=== PATIENT | male | born 1955 | race African-American/Black ===

== ENCOUNTER 2017-04-19 19:16 | Emergency (ER) | payer OTHER ==
[2017-04-19 19:25] VITALS: BP 142/78
[2017-04-19] MEDS ORDERED: DECADRON INJ IM ONE (20:08)
--- NOTE | 2017-04-19 20:09 | DR.GENAD ---
HPI - PCP Primary Care Physician: NFD - Complaint/Symptoms Chief Complaint:: LEFT FOOT PAIN FROM GOUT THAT STARTED ON TUESDAY. Self Treatment fo Chief Complaint: NONE - Source History Provided: Patient - Mode of Arrival Mode of Arrival: Ambulatory - Timing Onset of Chief Complaint: 04/17/17 PMH - PMH Past Medical History: Yes Past Medical History: Arthritis, COPD, CVA, Gout, Hypertension Past Surgical History: Yes Surgical History: Other Past Surgical History Comment: CIRCUMCISION - Family History History of Family Medical Conditions: Yes Family Medical History: Diabetes Mellitus, Cancer, [place], Coronary Artery Disease, Heart Failure, Sudden Cardiac , Hypertension - Social History Type of Tobacco Use: Cigarettes Alcohol Use: Occasionally Do you use any recreational Drugs:: No Lives With: Spouse Lives Where: Home - infectious screening Have you traveled outside the country in the last 6 months?: No Isolation: Standard ROS - Review of Systems Constitutional: No Symptoms Reported Eyes: No Symptoms Reported ENTM: No Symptoms Reported Respiratoy: No Symptoms Reported Cardiovascular: No Symptoms Reported Gastrointestinal/Abdominal: No Symptoms Reported Genitourinary: No Symptoms Reported Neurological: No Symptoms Reported Musculoskeletal: No Symptoms Reported Integumentary: No Symptoms Reported Hematologic/Lymphatic: No Symptoms Reported Endocrine: No Symptoms Reported Psychiatric: No Symptoms Reported All Other Systems: Reviewed and Negative PE - Vital Signs Vitals: Temperature 98.8 F Pulse Rate 88 Respiratory Rate 18 Blood Pressure [Left Arm] 153/76 Blood Pressure 142/78 O2 Sat by Pulse Oximetry 97 - General Limitations: No Limitations General Appearance: Alert, In No Apparent Distress - Head Head Exam: Normal Inspection, Atraumatic - Eyes Eye exam: Normal Appearance, Scleral Icterus - ENT ENT Exam: Normal Exam External Ear Exam: Normal External Inspection TM/Canal Exam: Bilateral Normal Nose Exam: Normal Nose Exam Mouth Exam: Normal Inspection Throat Exam: Normal Inspection - Neck Neck Exam: Normal Inspection - Chest Chest Inspection: Normal Inspection - Respiratory Respiratory Exam: Normal Lung Sounds Bilat Respiratory Exam: Bilateral Clear to Auscultation - Cardiovascular Cardiovascular Exam: Regular Rate - Abdominal Exam Abdominal Exam: Normal Inspection Abdominal Tenderness: negative: RUQ, RLQ, LUQ, LLQ, Epigastrium, Suprapubic, Diffuse, Mild, Moderate, Severe, Other - Extremities Extremities Exam: Joint Swelling (jonint swelling) - Back Back Exam: Normal Inspection, Full ROM - Neurologic Neurological Exam: Alert, Oriented X3, CN II-XII Intact - Psychiatric Psychiatric Exam: Normal Affect - Skin Skin Exam: Warm, Dry, Intact - Diagnosis Discharge Problem: Gout - Discharge Plan Condition: Stable - Follow ups/Referrals Follow ups/Referrals: NFD,None [Primary Care Provider] - 3 days - Instructions
[2017-04-19] MEDS ORDERED: DECADRON INJ ONE (20:17)
== END 2017-04-19 20:35 | disposition home or self-care (01) ==
LOC: ER 19:31
DX: M10.9 Gout, unspecified (principal)
CPT/HCPCS: 96372; 99282; J1100

== ENCOUNTER 2017-06-21 14:05 | Emergency (ER) | payer OTHER ==
[2017-06-21 14:24] VITALS: BMI 40.1
[2017-06-21 14:25] VITALS: BP 155/90
--- NOTE | 2017-06-21 15:13 | DR.EXTPAIN ---
HPI - Time seen Time seen: 14:35 - PCP Primary Care Physician: HUAN - HPI Comment HPI Comment: STARTED 9DAYS AGO. WORSE TODAY. NO DRAINAGE. - Complaint/Symptoms Chief Complaint Doctor Comments: ABSCESS ABD REDNESS RIGHT NECK. Chief Complaint:: PT HAS AN ABCESS TO THE RIGHT SIDE OF HIS NECK THAT STARTED A FEW DAYS AGO.. - Nurses notes reviewed Nurses Notes Review: Yes - Source History Provided: Patient - Mode of arrival Mode of Arrival: Ambulatory - Timing Onset of Chief Complaint: 06/12/17 - Context History of: None - Associated signs and symptoms Associated Signs and Symptoms: Pain, Swelling (REDNESS) PMH - PMH Past Medical History: Yes Past Medical History: Arthritis, COPD, CVA, Gout, Hypertension Past Surgical History: No Surgical History: Other - Family History History of Family Medical Conditions: Yes Family Medical History: Diabetes Mellitus, Cancer, [place], Coronary Artery Disease, Heart Failure, Sudden Cardiac , Hypertension - Social History Does patient currently use any type of tobacco product: Yes Have you used tobacco products in the last 12 months: Yes Type of Tobacco Use: Cigarettes How many years tobacco product used: 30 Does any household member use tobacco: No Alcohol Use: None Do you use any recreational Drugs:: No Lives With: Family Lives Where: Home - infectious screening In the last 2 months have you had wt loss of >10#?: NO Have you had fever, night sweats or hemotysis?: No Have you traveled outside the country in the last 6 months?: No Isolation: Standard ROS - Review of Systems Constitutional: No Symptoms Reported Eyes: No Symptoms Reported ENTM: No Symptoms Reported Respiratoy: No Symptoms Reported Cardiovascular: No Symptoms Reported Gastrointestinal/Abdominal: No Symptoms Reported Genitourinary: No Symptoms Reported Neurological: No Symptoms Reported Musculoskeletal: Neck Pain, Right Integumentary: Other (ABSCESS AND CELLULITIS RIGHT NECK.) Hematologic/Lymphatic: No Symptoms Reported Endocrine: No Symptoms Reported All Other Systems: Reviewed and Negative PE - Vital Signs Vitals: Temperature 98 F Pulse Rate 62 Respiratory Rate 18 Blood Pressure [Left Arm] 153/76 Blood Pressure 155/90 O2 Sat by Pulse Oximetry 99 - General Limitations: No Limitations General Appearance: Alert - Head Head Exam: Normal Inspection - Eyes Eye exam: Normal Appearance - ENT ENT Exam: Normal External Ear Exam - Neck Neck Exam: Trachea Midline, Tenderness (RT LATERAL NECK WITH ABSCESS AND REDNESS.) - Chest Chest Inspection: Symmetric Chest Wall Rise - Respiratory Respiratory Exam: Normal Lung Sounds Bilat Respiratory Exam: Bilateral Clear to Auscultation - Cardiovascular Cardiovascular Exam: Regular Rate, Normal Rhythm, Normal Heart Sounds - Abdominal Exam Abdominal Exam: Normal Bowel Sounds, Soft. negative: Tenderness - Extremities Extremities Exam: Normal Inspection - Skin Type of Lesion: Abscess Distribution: Neck Description: Erythematous, Swelling, Other (ABSCESS SIZE GOLF BALL LATERAL RIGHT NECK AT THE BASE. IT IS TENDER AND) MDM - Differential Diagnosis Differential Diagnosis: Other (ABSCESS RIGHT NECK, CELLULITIS RT NECK.) Course - Treatment Treatment: SEE ORDERS - Education/Counseling Education/Counseling: Patient, Education Educated On: Diagnosis, Needs for Follow Up ROR - Labs Reviewed Laboratory: 06/21/17 14:58 Neck Gram Stain - Final Procedures - Incision and Drainage Blade Size: 11 I & D Procedure: betadine prep, sterile dressing applied, gauze wick placed Progress: I&D DONE. 3CC PUS DRAIN FROM ABSCESS ON RIGHT LATERAL NECK. - Diagnosis Discharge Problem: Abscess Cellulitis Qualifiers: Site of cellulitis: neck Qualified Code(s): L03.221 - Cellulitis of neck - Discharge Plan Disposition: HOME, SELF-CARE Condition: Stable Prescriptions: Ibuprofen [MOTRIN TAB 800 MG *] 800 mg PO Q8H PRN #20 tab PRN Reason: Pain/Inflammation Sulfamethoxazole-Trimethoprim [BACTRIM DS TAB 800/160 MG *] 1 tab PO Q8H #20 tab Tramadol HCl 50 mg PO Q8H #15 tablet - Follow ups/Referrals Follow ups/Referrals: NFD,None [Primary Care Provider] - 3 days Max Chaves [STAFF PHYSICIAN] - 2 days - Instructions Instructions: Abscess, [id number], Cellulitis, Adult, [id number] Additional Instructions: RETURN TO ED IF WORSE.
== END 2017-06-21 15:25 | disposition home or self-care (01) ==
LOC: ER 14:26
PROC: 0W963ZZ Drainage of Neck, Percutaneous Approach (ICD-10-PCS; principal; 2017-06-21)
DX: L02.11 Cutaneous abscess of neck (principal); L03.221 Cellulitis of neck
CPT/HCPCS: 10060; 87070; 87075; 87205; 99282

== ENCOUNTER 2017-09-25 18:09 | Emergency (ER) | payer OTHER ==
[2017-09-25 18:28] VITALS: BP 188/91; BMI 48.8
--- NOTE | 2017-09-25 20:24 | DR.GENAD ---
HPI - PCP Primary Care Physician: NFD - Complaint/Symptoms Chief Complaint Doctors Comments: Patient presents with complaint of hematuria this AM and at noon today. He denies urinary frequency fever or traume. Admits to colonoscopy this year. Chief Complaint:: BLOOD IN URINE. PT STATES HE NOTICED IT FIRST THING THIS MORNING AND THEN AT LUNCH TIME TODAY. - Source History Provided: Patient - Mode of Arrival Mode of Arrival: Ambulatory - Timing Onset of Chief Complaint: 09/25/17 PMH - PMH Past Medical History: Yes Past Medical History: Arthritis, COPD, CVA, Gout, Hypertension Past Surgical History: No Surgical History: Other - Family History History of Family Medical Conditions: Yes Family Medical History: Diabetes Mellitus, Cancer, [place], Coronary Artery Disease, Heart Failure, Sudden Cardiac , Hypertension - Social History Does patient currently use any type of tobacco product: Yes Have you used tobacco products in the last 12 months: Yes Type of Tobacco Use: Cigarettes Does any household member use tobacco: No Alcohol Use: None Do you use any recreational Drugs:: No Lives With: Spouse Lives Where: Home - infectious screening In the last 2 months have you had wt loss of >10#?: NO Have you had fever, night sweats or hemotysis?: No Have you traveled outside the country in the last 6 months?: No Isolation: Standard ROS - Review of Systems Eyes: No Symptoms Reported ENTM: No Symptoms Reported Respiratoy: No Symptoms Reported Cardiovascular: No Symptoms Reported Gastrointestinal/Abdominal: No Symptoms Reported Genitourinary: No Symptoms Reported Neurological: No Symptoms Reported Musculoskeletal: No Symptoms Reported Integumentary: No Symptoms Reported Hematologic/Lymphatic: No Symptoms Reported Endocrine: No Symptoms Reported Psychiatric: No Symptoms Reported All Other Systems: Reviewed and Negative PE - Vital Signs Vitals: Temperature 97.7 F Pulse Rate 63 Respiratory Rate 20 Blood Pressure [Left Arm] 153/76 Blood Pressure 188/91 O2 Sat by Pulse Oximetry 98 - General Limitations: No Limitations General Appearance: Alert, In No Apparent Distress - Head Head Exam: Normal Inspection, Atraumatic - Eyes Eye exam: Normal Appearance, PERRL, EOMI - ENT ENT Exam: Normal Exam External Ear Exam: Normal External Inspection TM/Canal Exam: Bilateral Normal Nose Exam: Normal Nose Exam Mouth Exam: Normal Inspection Throat Exam: Normal Inspection - Neck Neck Exam: Normal Inspection - Chest Chest Inspection: Normal Inspection - Respiratory Respiratory Exam: Normal Lung Sounds Bilat Respiratory Exam: Bilateral Clear to Auscultation - Cardiovascular Cardiovascular Exam: Regular Rate, Normal Rhythm - Abdominal Exam Abdominal Exam: Normal Inspection Abdominal Tenderness: negative: RUQ, RLQ, LUQ, LLQ, Epigastrium, Suprapubic, Diffuse, Mild, Moderate, Severe, Other - Extremities Extremities Exam: Normal Inspection - Back Back Exam: Normal Inspection - Neurologic Neurological Exam: Alert, Oriented X3, CN II-XII Intact - Psychiatric Psychiatric Exam: Normal Affect - Skin Skin Exam: Warm, Dry, Intact Course - Reevaluation 1st: Unchanged ROR - Labs Reviewed Laboratory: Specimen Type Clean catch urine 09/25/17 20:30 Urine Color Yellow (YELLOW) 09/25/17 20:30 Urine Appearance Clear (CLEAR) 09/25/17 20:30 Urine pH 5.0 (5.0 - 8.0) 09/25/17 20:30 Ur Specific [place] 1.015 (1.000-1.030) 09/25/17 20:30 Urine Protein 1+ (NEGATIVE) 09/25/17 20:30 Urine Glucose (UA) Negative (NEGATIVE) 09/25/17 20:30 Urine Ketones Negative (NEGATIVE) 09/25/17 20:30 Urine Occult Blood Negative (NEGATIVE) 09/25/17 20:30 Urine Nitrite Negative (NEGATIVE) 09/25/17 20:30 Urine Bilirubin Negative (NEGATIVE) 09/25/17 20:30 Urine Urobilinogen Normal (NORMAL) 09/25/17 20:30 Ur Leukocyte Esterase Negative (NEGATIVE) 09/25/17 20:30 Urine RBC None seen /HPF (NEGATIVE) 09/25/17 20:30 Urine WBC None seen /HPF (NEGATIVE) 09/25/17 20:30 Ur Squamous Epith Cells Negative /HPF (NEGATIVE) 09/25/17 20:30 Amorphous Sediment Trace /HPF (NEGATIVE) 09/25/17 20:30 Urine Bacteria Negative /HPF (NEGATIVE) 09/25/17 20:30 Ur Culture Indicated? No/not indicated 09/25/17 20:30 - XRAY XRAY Interpreted by: Radiologist (KUB: Evaluation of the abdomen demonstrates a normal bowel gas pattern. No free air. Probable small bilateral renal stones. The bony structures are grossly intact. Impression: Probable small bialteral renal stones. ) - Diagnosis Discharge Problem: Small kidney, bilateral - Discharge Plan Condition: Stable - Follow ups/Referrals Follow ups/Referrals: NFD,None [Primary Care Provider] - 3 days - Instructions
[2017-09-25 20:38] LABS: BILIRUBIN,URINE NEGATIVE (NEGATIVE); BLOOD/HEMOGLOBIN,URINE NEGATIVE (NEGATIVE); GLUCOSE, URINE NEGATIVE (NEGATIVE); KETONES,URINE NEGATIVE (NEGATIVE); LEUKOCYTE ESTERASE ,URINE NEGATIVE (NEGATIVE); NITRITES,URINE NEGATIVE (NEGATIVE); PROTEIN,URINE 1+ (NEGATIVE); UROBILINOGEN,URINE NORMAL (NORMAL)
[2017-09-25 20:49] LABS: AMORPHOUS SEDIMENT,UR TRACE /HPF (NEGATIVE); APPEARANCE,URINE CLEAR (CLEAR); BACTERIA,URINE NEGATIVE /HPF (NEGATIVE); COLOR,URINE YELLOW (YELLOW); RBC,URINE NONE SEEN /HPF (NEGATIVE); SQUAMOUS EPITHELIAL CELL,UR NEGATIVE /HPF (NEGATIVE)
--- NOTE | 2017-09-25 21:51 | RAD ---
HISTORY: Blood in urine Study: Flat and upright views of the abdomen. Comparison: None Findings: Evaluation of the abdomen demonstrates a normal bowel gas pattern. No free air. Probable small bilat eral renal stones. The bony structures are grossly intact. IMPRESSION: 1. Probable small bilateral renal stones. Reported By:
[2017-09-29 11:34] LABS: HCV VIRAL LOG <1.2 log IU
== END 2017-09-25 22:02 | disposition home or self-care (01) ==
LOC: ER 18:25
DX: R31.9 Hematuria, unspecified (principal)
CPT/HCPCS: 36415; 74000; 81001; 87522; 99282; 99283

== ENCOUNTER 2017-09-28 13:15 | Emergency (ER) | payer SELFPAY ==
--- NOTE | 2017-09-28 13:26 | DR.EXTPAIN ---
HPI - Time seen Time seen: 13:30 - PCP Primary Care Physician: HUAN - HPI Comment HPI Comment: GETTING WORSE. HOME MED DID NOT HELP. - Complaint/Symptoms Chief Complaint Doctor Comments: GOUT ATTACK RIGHT KNEE. Chief Complaint:: PT. C/O RIGHT KNEE PAIN. PT. STATES HE HAS GOUT. PT. AMBULATORY WITH CANE. - Nurses notes reviewed Nurses Notes Review: Yes - Source History Provided: Patient - Mode of arrival Mode of Arrival: Ambulatory - Timing Onset of Chief Complaint: 09/28/17 - Context History of: Gout, Arthritis - Associated signs and symptoms Associated Signs and Symptoms: Pain, Swelling PMH - PMH Past Medical History: Yes Past Medical History: Arthritis, COPD, CVA, Gout, Hypertension Past Surgical History: Yes Surgical History: Other - Family History History of Family Medical Conditions: Yes Family Medical History: Diabetes Mellitus, Cancer, [place], Coronary Artery Disease, Heart Failure, Sudden Cardiac , Hypertension - Social History Does patient currently use any type of tobacco product: Yes Have you used tobacco products in the last 12 months: Yes Type of Tobacco Use: Cigarettes Does any household member use tobacco: No Alcohol Use: Occasionally Do you use any recreational Drugs:: No Lives With: Family Lives Where: Home - infectious screening In the last 2 months have you had wt loss of >10#?: NO Have you had fever, night sweats or hemotysis?: No Have you traveled outside the country in the last 6 months?: No Isolation: Standard ROS - Review of Systems Constitutional: Weakness, Fatigue. negative: Chills, Fever Eyes: negative: Eye Pain, Discharge ENTM: negative: Ear Pain, Nose Discharge, Nose Congestion, Throat Pain Respiratoy: Short of Breath, Wheezing. negative: Productive Cough, Non- Productive Cough, Hemoptysis Cardiovascular: Edema. negative: Chest Pain Gastrointestinal/Abdominal: negative: Abdominal Pain, Diarrhea, Nausea, Vomiting Genitourinary: negative: Hematuria Neurological: Weakness. negative: Headache, Dizziness Musculoskeletal: Right, Knee Integumentary: No Symptoms Reported Hematologic/Lymphatic: No Symptoms Reported Endocrine: No Symptoms Reported All Other Systems: Reviewed and Negative PE - Vital Signs Vitals: Temperature 98 F Pulse Rate 96 Respiratory Rate 17 Blood Pressure [Left Arm] 153/76 Blood Pressure 152/71 O2 Sat by Pulse Oximetry 97 - General Limitations: No Limitations General Appearance: Alert - Head Head Exam: Normal Inspection - Eyes Eye exam: Normal Appearance - ENT ENT Exam: Normal Exam - Neck Neck Exam: Trachea Midline - Chest Chest Inspection: Symmetric Chest Wall Rise - Respiratory Respiratory Exam: Normal Lung Sounds Bilat Respiratory Exam: Bilateral Wheezing, Bilateral Rhonchi, Lower Wheezing, Lower Rhonchi - Cardiovascular Cardiovascular Exam: Regular Rate, Normal Rhythm, Normal Heart Sounds - Abdominal Exam Abdominal Exam: Normal Bowel Sounds, Soft. negative: Tenderness - Extremities Extremities Exam: Tenderness (RT KNEE SWOLLEN AND TENDER.), Edema (BILATERAL LEG AND ANKLE EDEMA.) - Lower Extremities Neurovascular/Tendon Exam: Normal Capillary Refill Gait Exam: Observed & Limited by Pain - Back Back Exam: Paraspinal Tenderness - Neurological Neurological Exam: Alert, Oriented X3 - Psychiatric Psychiatric Exam: Normal Affect, Normal Mood - Skin Skin Exam: Normal Color MDM - Differential Diagnosis Differential Diagnosis: Other (GOUT ATTACK, ARTHRITIS) Course - Treatment Treatment: SEE ORDERS. IM TORADOL, PAIN SLIGHLY IMPROVED - Reevaluation 1st: Improved - Education/Counseling Education/Counseling: Patient, Family, Education Educated On: Diagnosis, Needs for Follow Up - Diagnosis Discharge Problem: Right knee pain Gout attack Qualifiers: Gout site: knee Gout etiology: unspecified cause Laterality: right Qualified Code(s): M10.9 - Gout, unspecified - Discharge Plan Disposition: 01 HOME, SELF-CARE Condition: Stable Prescriptions: Indomethacin [Indomethacin ER] 75 mg PO QAM #30 capsule.er Tramadol HCl 50 mg PO Q8H #20 tablet - Follow ups/Referrals Follow ups/Referrals: NFD,None [Primary Care Provider] - 3 days - Instructions Instructions: Gout, [id number] Additional Instructions: RETURN TO ED IF WORSE
[2017-09-28 13:28] VITALS: BP 152/71; BMI 48.8
[2017-09-28] MEDS ORDERED: TORADOL 60 MG VIAL IM ONE (13:30)
[2017-09-28] MEDS ORDERED: TORADOL 60 MG VIAL ONE (13:32)
== END 2017-09-28 14:45 | disposition home or self-care (01) ==
LOC: ER 13:28
DX: M10.9 Gout, unspecified (principal); M25.561 Pain in right knee
CPT/HCPCS: 96372; 99282; J1885

== ENCOUNTER 2024-08-16 16:15 | Inpatient (IN) ==
[2024-08-16 16:52] LABS: MEAN CORPUSCULAR VOLUME 90.2 fL (80.0-100.0); NEUTROPHILS # (AUTO) 3.4 x10^3/uL (2.2-4.8); RED CELL DISTRIBUTION WIDTH 15.3 % (11.6-16.5)
[2024-08-16] MEDS: LEVAQUIN PREMIX IV 750 MG 750 MG/150 ML BAG IV ONE (16:53)
[2024-08-16 16:55] LABS: BASOPHILS % (AUTO) 0.1 % (0.2-1.0); BLOOD UREA NITROGEN 70 mg/dL (7-18); CALCIUM 9.3 mg/dL (8.5-10.1); CHLORIDE 101 mmol/L (98-107); CREATININE 3.47 mg/dL (0.70-1.30); EOSINOPHILS % (AUTO) 0.1 % (0.9-2.9); GLUCOSE 108 mg/dL (65-99); HEMOGLOBIN 13.1 g/dL (13.5-18.0); LYMPHOCYTES # (AUTO) 0.4 X10^3/uL (1.3-2.9); LYMPHOCYTES % (AUTO) 9.6 % (21.0-51.0); MEAN CORPUSCULAR HEMOGLOBIN 30.3 pg (27.0-34.0); MEAN CORPUSCULAR HGB CONC 33.6 g/dL (33.0-35.0); MEAN PLATELET VOLUME 10.1 fL (7.4-11.0); MONOCYTES # (AUTO) 0.5 x10^3/uL (0.3-0.8); NEUTROPHILS % (AUTO) 78.2 % (42.0-75.0); PLATELET COUNT 206 X10^3/uL (150.0-450.0); POTASSIUM 3.7 mmol/L (3.5-5.1); RED BLOOD COUNT 4.33 X10^6/uL (4.7-6.0); SODIUM 141 mmol/L (136-145); WHITE BLOOD COUNT 4.4 X10^3/uL (3.6-10.0); eGFR NON BLACK RACES 19 (>60)
[2024-08-16] MEDS: DUONEB 0.5 MG/3 MG (3 mL) NEB ONE (16:56)
[2024-08-16 17:09] LABS: ABG ALLEN TEST POS; ABG BASE EXCESS 2.1 mmol/L (-2.0-2.0); ABG HCO3 25.3 mmol/L (22-26)
[2024-08-16] MEDS: ROCEPHIN VIAL 1 GRAM 1 G in NS 100 ML IV 100 ML IV ONE (17:16)
[2024-08-16 17:18] LABS: ALANINE AMINOTRANSFERASE 8 Units/L (12-78); ALBUMIN 2.5 g/dL (3.4-5.0); ALKALINE PHOSPHATASE 66 Units/L (46-116); ASPARTATE AMINO TRANSFERASE 24 Units/L (15-37); COR CA(FOR HYPOALB) 10.5 mg/dL (8.5-10.1); TOTAL PROTEIN 7.2 g/dL (6.4-8.2)
[2024-08-16] MEDS: NS 1,000 ML IV 1,000 ML IV ONE ×2 (17:21→18:26)
[2024-08-16 17:22] LABS: PLATELET MORPHOLOGY COMMENT NORMAL (NORMAL)
--- NOTE | 2024-08-16 17:49 | DR.SOBA ---
HPI Time Seen Time Seen by Provider: 08/16/24 17:48 Primary Care Physician Primary Care Physician: jenny HPI Comment HPI Comment: Patient was diagnosed on 1118 with RSV. Patient has had increased shortness of breath and cough since then. Denies fever at this time Complaints Chief Complaint:: Patient was diagnosed with RSV on 08/14 states he has had increase sob and cough. COVID-19 Coronavirus risk:travel/contact w/high risk person: No Has patient experienced Coronavirus symptoms: Yes Coronavirus symptoms experienced: Coughing and Shortness of Breath Source History Provided: Patient Mode of Arrival Mode of Arrival: Wheelchair Timing Onset of Chief Complaint: 08/14/24 PMH PMH Past Medical History: Yes Past Medical History: Hypertension Past Surgical History: No Surgical History: No History Family History History of Family Medical Conditions: Yes Family Medical History: Hypertension Social History Does patient currently use any type of tobacco product: Yes Have you used tobacco products in the last 12 months: Yes Type of Tobacco Use: Cigarettes Does any household member use tobacco: Yes Alcohol Use: None Do you use any recreational Drugs:: No Lives With: Family Lives Where: Home Travel Risk Coronavirus risk:travel/contact w/high risk person: No Has patient experienced Coronavirus symptoms: Yes Coronavirus symptoms experienced: Coughing and Shortness of Breath Infectious screening In the last 2 months have you had wt loss of >10#?: NO Have you had fever, night sweats or hemotysis?: No Have you traveled outside the country in the last 6 months?: No Isolation: Droplet ROS Review of Systems Constitutional: No Symptoms Reported Eyes: No Symptoms Reported ENTM: No Symptoms Reported Respiratoy: See HPI, Non-Productive Cough and Short of Breath Cardiovascular: No Symptoms Reported Gastrointestinal/Abdominal: No Symptoms Reported Genitourinary: No Symptoms Reported Neurological: No Symptoms Reported Musculoskeletal: No Symptoms Reported Integumentary: No Symptoms Reported Hematologic/Lymphatic: No Symptoms Reported Endocrine: No Symptoms Reported Psychiatric: No Symptoms Reported All Other Systems: Reviewed and Negative PE Vital Signs Vitals: Vital Signs Temperature 98.6 F Pulse Rate 86 Pulse Rate 86 Pulse Rate 84 Pulse Rate 85 Pulse Rate 81 Pulse Rate 83 Pulse Rate 94 Pulse Rate 88 Pulse Rate 91 Respiratory Rate 30 Blood Pressure 139/63 Blood Pressure 120/61 Blood Pressure 125/63 Blood Pressure 134/74 Blood Pressure 94/56 O2 Sat by Pulse Oximetry 90 O2 Sat by Pulse Oximetry 92 O2 Sat by Pulse Oximetry 91 O2 Sat by Pulse Oximetry 91 O2 Sat by Pulse Oximetry 90 O2 Sat by Pulse Oximetry 94 O2 Sat by Pulse Oximetry 89 O2 Sat by Pulse Oximetry 89 O2 Sat by Pulse Oximetry 86 General Limitations: No Limitations General Appearance: Alert and In No Apparent Distress Head Head Exam: Normal Inspection Eyes Eye exam: Normal Appearance ENT ENT Exam: Normal Exam Neck Neck Exam: Normal Inspection Chest Chest Inspection: Normal Inspection Respiratory Respiratory Exam: Normal Lung Sounds Bilat Respiratory Exam: Bilateral: Wheezing and Bilateral: Decreased Breath Sounds (D ecreased on bilateral bases and coarse throughout.) Cardiovascular Cardiovascular Exam: Regular Rate and Normal Rhythm Abdominal Exam Abdominal Exam: Normal Inspection, Normal Bowel Sounds and Soft Extremities Extremities Exam: Normal Inspection Back Back Exam: Normal Inspection Neurologic Neurological Exam: Alert and Oriented X3 Psychiatric Psychiatric Exam: Normal Affect and Normal Mood Skin Skin Exam: Warm, Dry, Intact and Normal Color COURSE Treatment Treatment: Patient has had some improvement with current treatments. Reevaluation 1st: Improved Consultation Called: 18:37 Consultation Comments: Discussed case with Dr. Burgos and he is agreeable to adm ission. ROR Labs Reviewed 08/16/24 16:30 08/16/24 16:30 Laboratory: WBC 4.4 X10^3/uL (3.6-10.0) 08/16/24 16:30 RBC 4.33 X10^6/uL (4.7-6.0) L 08/16/24 16:30 Hgb 13.1 g/dL (13.5-18.0) L 08/16/24 16:30 Hct 39.0 % (42.0-54.0) L 08/16/24 16:30 MCV 90.2 fL (80.0-100.0) 08/16/24 16:30 MCH 30.3 pg (27.0-34.0) 08/16/24 16:30 MCHC 33.6 g/dL (33.0-35.0) 08/16/24 16:30 RDW 15.3 % (11.6-16.5) 08/16/24 16:30 Plt Count 206 X10^3/uL (150.0-450.0) 08/16/24 16:30 Plt Count Comment Adequate (ADEQUATE) 08/16/24 16:30 MPV 10.1 fL (7.4-11.0) 08/16/24 16:30 Neut % (Auto) 78.2 % (42.0-75.0) H 08/16/24 16:30 Lymph % (Auto) 9.6 % (21.0-51.0) L 08/16/24 16:30 [place] % (Auto) 12.0 % (0.0-13.0) 08/16/24 16:30 Eos % (Auto) 0.1 % (0.9-2.9) L 08/16/24 16:30 Baso % (Auto) 0.1 % (0.2-1.0) L 08/16/24 16:30 Neut # (Auto) 3.4 x10^3/uL (2.2-4.8) 08/16/24 16:30 Lymph # (Auto) 0.4 X10^3/uL (1.3-2.9) L 08/16/24 16:30 [place] # (Auto) 0.5 x10^3/uL (0.3-0.8) 08/16/24 16:30 Eos # (Auto) 0.0 x10^3/uL (0.0-0.2) 08/16/24 16:30 Baso # (Auto) 0.0 X10^3/uL (0.0-0.1) 08/16/24 16:30 Absolute Nucleated RBC 0.2 /100WBC 08/16/24 16:30 Total Counted 100 08/16/24 16:30 Neutrophils % (Manual) 79 % (39-76) H 08/16/24 16:30 Lymphocytes % (Manual) 10 % (13-43) L 08/16/24 16:30 Monocytes % (Manual) 11 % (4-9) H 08/16/24 16:30 Plt Morphology Comment Normal (NORMAL) 08/16/24 16:30 RBC Morphology Normal (NORMAL) 08/16/24 16:30 Sample Site Rrad 08/16/24 17:05 ABG pH 7.480 (7.35-7.45) H 08/16/24 17:05 ABG pCO2 34.0 mmHg (35.0-45.0) L 08/16/24 17:05 ABG pO2 46.0 mmHg (80.0-100.0) L* 08/16/24 17:05 ABG HCO3 25.3 mmol/L (22-26) 08/16/24 17:05 ABG O2 Saturation 85.0 % (90-100) L 08/16/24 17:05 ABG Base Excess 2.1 mmol/L (-2.0-2.0) H 08/16/24 17:05 Gunnar Test Pos 08/16/24 17:05 A-a Gradient 61.0 mmHg 08/16/24 17:05 FiO2 21.0 08/16/24 17:05 Blood Gas Comments Torsten well ms/cn 08/16/24 17:05 Sodium 141 mmol/L (136-145) 08/16/24 16:30 Corrected Sodium TNP 08/16/24 16:30 Potassium 3.7 mmol/L (3.5-5.1) 08/16/24 16:30 Chloride 101 mmol/L (98-107) 08/16/24 16:30 Carbon Dioxide 26.0 mmol/L (21-32) 08/16/24 16:30 BUN 70 mg/dL (7-18) H 08/16/24 16:30 Creatinine 3.47 mg/dL (0.70-1.30) H 08/16/24 16:30 Est GFR (MDRD) Af Amer 23 (>60) L 08/16/24 16:30 Est GFR (MDRD) Non-Af 19 (>60) L 08/16/24 16:30 Glucose 108 mg/dL (65-99) H 08/16/24 16:30 Lactic Acid 2.3 mmol/L (0.4-2.0) H 08/16/24 16:30 Calcium 9.3 mg/dL (8.5-10.1) 08/16/24 16:30 Corrected Calcium 10.5 mg/dL (8.5-10.1) H 08/16/24 16:30 Total Bilirubin 0.60 mg/dL (0.2-1.0) 08/16/24 16:30 AST 24 Units/L (15-37) 08/16/24 16:30 ALT 8 Units/L (12-78) L 08/16/24 16:30 Alkaline Phosphatase 66 Units/L (46-116) 08/16/24 16:30 Total Protein 7.2 g/dL (6.4-8.2) 08/16/24 16:30 Albumin 2.5 g/dL (3.4-5.0) L 08/16/24 16:30 Globulin 4.7 g/dL (2.5-4.5) H 08/16/24 16:30 Albumin/Globulin Ratio 0.5 Ratio (1.1-2.1) L 08/16/24 16:30 Opioid Opioid Risk Tool Age (Saad box if 16-45): No History of Preadolescent Sexual Abuse: No Total: 0 Total Score Risk Category: Low Risk Copyright: [facility] predicting aberrant behaviors Discharge Plan Diagnosis Discharge Problem: Pneumonia, Acute respiratory distress, Hypoxia Discharge Plan Patient Disposition: 09 ADMITTED INPATIENT Condition: Stable Prescriptions: No Action atorvastatin 20 mg tablet 20 mg PO QDAY 90 Days Qty: 90 1RF famotidine 20 mg tablet 20 mg PO BID 90 Days Qty: 180 1RF tadalafil [Cialis] 10 mg tablet 10 mg PO QDAY PRN (Reason: sexual activity) 30 Days Qty: 30 2RF Rx Instructions: administer approximately 30min before sexual activity; do not use more than 1 dose per 24hrs allopurinol 100 mg tablet 100 mg PO QDAY 90 Days Qty: 90 1RF clonidine HCl 0.3 mg tablet 0.3 mg PO TID 90 Days Qty: 270 1RF hydralazine 25 mg tablet 25 mg PO BID 90 Days Qty: 180 1RF lisinopril 40 mg tablet 40 mg PO QDAY 90 Days Qty: 90 1RF nifedipine 30 mg tablet extended release 24hr 30 mg PO QDAY 90 Days Qty: 90 1RF Health Concerns: Post Hospitalization: new medications and changes needed to prevent readmission or further decline. Pt educated and given instructions on all concerns. Plan of Treatment: Continue with present treatment and follow up plan. Pt is to keep follow up appointment as instructed and take medications as ordered. Orders to Discharge Patient Discharge Orders: Transfer (Routine); Ordered 08/16/24 Ordered By: Armando Villegas Follow ups/Referrals Follow ups/Referrals: Kirk Wilson MD [Primary Care Provider] - 3 days Instructions Stand Alone Forms: Post Hospital Follow Up Care
[2024-08-16] MEDS ORDERED: NS 1,000 ML IV 1,000 ML IV SCH (19:44)
[2024-08-16] MEDS ORDERED: PEPCID TAB 40 MG PO PRN (19:44)
[2024-08-16] MEDS ORDERED: PHARMACY CONSULT - LOVENOX XX SCH (19:44)
[2024-08-16] MEDS: NS 1,000 ML IV 1,000 ML IV SCH (20:38)
[2024-08-16] MEDS: SOLU-Medrol 125 MG VIAL IVP SCH (20:38)
[2024-08-16] MEDS: LOVENOX INJ 120 MG SYR SC ONE (20:39)
[2024-08-16] MEDS: PULMICORT NEB TX 0.5 MG NEB SCH (20:46)
[2024-08-16] MEDS: DUONEB 0.5 MG/3 MG (3 mL) NEB SCH (20:46)
[2024-08-16 21:47] VITALS: BMI 40.1
[2024-08-16] MEDS: APRESOLINE TAB 25 MG PO ONE (22:23)
[2024-08-16] MEDS ORDERED: HYDROCHLOROTHIAZIDE 25 MG TAB PO SCH (23:00)
[2024-08-17 05:13] LABS: HEMOGLOBIN 12.1 g/dL (13.5-18.0); LYMPHOCYTES # (AUTO) 0.5 X10^3/uL (1.3-2.9); MONOCYTES # (AUTO) 0.3 x10^3/uL (0.3-0.8); PLATELET COUNT 192 X10^3/uL (150.0-450.0)
[2024-08-17 05:21] LABS: BASOPHILS % (AUTO) 0.1 % (0.2-1.0); EOSINOPHILS % (AUTO) 0.1 % (0.9-2.9); HEMATOCRIT 36.3 % (42.0-54.0); MEAN CORPUSCULAR HEMOGLOBIN 29.9 pg (27.0-34.0); MEAN CORPUSCULAR HGB CONC 33.4 g/dL (33.0-35.0); MEAN CORPUSCULAR VOLUME 89.4 fL (80.0-100.0); MEAN PLATELET VOLUME 9.8 fL (7.4-11.0); MONOCYTES % (AUTO) 6.6 % (0.0-13.0); NEUTROPHILS # (AUTO) 3.3 x10^3/uL (2.2-4.8); NEUTROPHILS % (AUTO) 80.2 % (42.0-75.0); RED BLOOD COUNT 4.06 X10^6/uL (4.7-6.0); RED CELL DISTRIBUTION WIDTH 15.2 % (11.6-16.5); WHITE BLOOD COUNT 4.1 X10^3/uL (3.6-10.0)
[2024-08-17 05:29] LABS: ALBUMIN 2.1 g/dL (3.4-5.0); CALCIUM 9.2 mg/dL (8.5-10.1); CARBON DIOXIDE 24.7 mmol/L (21-32); COR CA(FOR HYPOALB) 10.7 mg/dL (8.5-10.1); CREATININE 2.71 mg/dL (0.70-1.30); POTASSIUM 3.8 mmol/L (3.5-5.1); TOTAL PROTEIN 6.8 g/dL (6.4-8.2)
--- NOTE | 2024-08-17 05:31 | RAD ---
EXAM:CHEST, PA/LAT ADULTHISTORY:sob;COMPARISON:August 14TECHNIQUE:Upright portable chestFINDINGS:Limited inspiration observed. Mild elevation of the right diaphragm. Multifocal bilateral pulmonary opacities with ground-glass attenuation and more dense consolidation in the left lung base are compatible with pneumonia. This is slightly worsened in the interim. The heart size remains stable. No pneumothorax is observed.IMPRESSION:Multi focal bilateral pulmonary opacities/infiltrates compatible with pneumonia.THIS IS AN ELECTRONICALLY VERIFIED FINAL [id number]/2024 5:28 AM - Electronically signed by Bunny Kelley MD
[2024-08-17 05:42] LABS: BAND NEUTROPHILS % 4 % (0-10); PLATELET MORPHOLOGY COMMENT NORMAL (NORMAL)
[2024-08-17] MEDS ORDERED: CONSULT PHARMACY - POTASSIUM & MAGNESIUM XX SCH (07:00)
[2024-08-17] MEDS: PULMICORT NEB TX 0.5 MG NEB ONE (07:14)
[2024-08-17] MEDS: NS 1,000 ML IV 1,000 ML ONE (07:14)
[2024-08-17] MEDS ORDERED: PEPCID TAB 20 MG PO PRN ×2 (07:29→11:11)
[2024-08-17] MEDS: PROTONIX INJ 40 MG VIAL IVP SCH (08:47)
[2024-08-17] MEDS: KLOR-CON 10 MEQ TAB PO SCH (08:49)
[2024-08-17] MEDS: ROCEPHIN VIAL 1 GRAM 1 G in NS 50 ML IV 50 ML IV SCH (08:49)
--- NOTE | 2024-08-17 10:24 | DR.H&P ---
H&P History & Physical for Day of: H&P Date: 08/17/24 Chief Complaint Chief Complaint: "I have breathing problems and feel tired all the time." History of Present Illness History of Present Illness: Pipo Salazar is a 68-year-old white male with a recent admission through the [facility] Emergency Department for RSV infection, COPD exacerbation, hypoxia, respiratory stress, and pneumonia. His symptoms began leading to his admission yesterday. He experienced shortness of breath, increased fatigue, and a sense of discomfort related to his breathing. Notably, he denies experiencing fever, chest pain, palpitations, or any sig nificant coughing prior to admission. Upon admission, he was assessed as dehydrated, with an estimated GFR of 23. Since then, his GFR has improved to 30, indicating better hydration status. He received IV hydration and treatment, including methylprednisolone, and his response has been positive with improved breathing noted this morning. Past Medical History Past Medical History: Dyslipidemia, GERD, Gout and Hypertension Additional Medical History: ED/The patient has a history of COPD and previously diagnosed respiratory conditions, including RSV. He also has a history of chronic hypoxia. His renal function tests indicated an improvement from a creatinine level of 3.47 upon admission to 2.71, confirming renal recovery. Other notable conditions include hypertension, for which he has been receiving medication management. Past Surgical History Surgical History: No History Family History Family Medical History: Diabetes Mellitus, Cancer, [place], Coronary Artery Disease and Hypertension Social History Does patient currently use any type of tobacco product: Yes Have you used tobacco products in the last 12 months: Yes Type of Tobacco Use: Cigarettes Does any household member use tobacco: Yes Alcohol Use: Occasionally Drug Use: None and Other (Social History Pipo lives independently and manages his daily activities without assistance. There are no indications of tobacco or illicit drug use, but his alcohol use status indicates he drinks occasional alcohol. His past occupation is also not documented.) Allergies Allergies Allergy/AdvReac Type Severity Reaction Status Date / Time No Known Drug Allergies Allergy Unknown Verified 08/14/24 17:04 Labs 08/17/24 04:38 08/17/24 04:38 Labs: Laboratory WBC 4.1 X10^3/uL (3.6-10.0) 08/17/24 04:38 RBC 4.06 X10^6/uL (4.7-6.0) L 08/17/24 04:38 Hgb 12.1 g/dL (13.5-18.0) L 08/17/24 04:38 Hct 36.3 % (42.0-54.0) L 08/17/24 04:38 MCV 89.4 fL (80.0-100.0) 08/17/24 04:38 MCH 29.9 pg (27.0-34.0) 08/17/24 04:38 MCHC 33.4 g/dL (33.0-35.0) 08/17/24 04:38 RDW 15.2 % (11.6-16.5) 08/17/24 04:38 Plt Count 192 X10^3/uL (150.0-450.0) 08/17/24 04:38 Plt Count Comment Adequate (ADEQUATE) 08/17/24 04:38 MPV 9.8 fL (7.4-11.0) 08/17/24 04:38 Neut % (Auto) 80.2 % (42.0-75.0) H 08/17/24 04:38 Lymph % (Auto) 13.0 % (21.0-51.0) L 08/17/24 04:38 [place] % (Auto) 6.6 % (0.0-13.0) 08/17/24 04:38 Eos % (Auto) 0.1 % (0.9-2.9) L 08/17/24 04:38 Baso % (Auto) 0.1 % (0.2-1.0) L 08/17/24 04:38 Neut # (Auto) 3.3 x10^3/uL (2.2-4.8) 08/17/24 04:38 Lymph # (Auto) 0.5 X10^3/uL (1.3-2.9) L 08/17/24 04:38 [place] # (Auto) 0.3 x10^3/uL (0.3-0.8) 08/17/24 04:38 Eos # (Auto) 0.0 x10^3/uL (0.0-0.2) 08/17/24 04:38 Baso # (Auto) 0.0 X10^3/uL (0.0-0.1) 08/17/24 04:38 Absolute Nucleated RBC 0.1 /100WBC 08/17/24 04:38 Total Counted 100 08/17/24 04:38 Neutrophils % (Manual) 73 % (39-76) 08/17/24 04:38 Band Neutrophils % 4 % (0-10) 08/17/24 04:38 Lymphocytes % (Manual) 18 % (13-43) 08/17/24 04:38 Monocytes % (Manual) 5 % (4-9) 08/17/24 04:38 Plt Morphology Comment Normal (NORMAL) 08/17/24 04:38 RBC Morphology Normal (NORMAL) 08/17/24 04:38 Sample Site Rrad 08/16/24 17:05 ABG pH 7.480 (7.35-7.45) H 08/16/24 17:05 ABG pCO2 34.0 mmHg (35.0-45.0) L 08/16/24 17:05 ABG pO2 46.0 mmHg (80.0-100.0) L* 08/16/24 17:05 ABG HCO3 25.3 mmol/L (22-26) 08/16/24 17:05 ABG O2 Saturation 85.0 % (90-100) L 08/16/24 17:05 ABG Base Excess 2.1 mmol/L (-2.0-2.0) H 08/16/24 17:05 Gunnar Test Pos 08/16/24 17:05 A-a Gradient 61.0 mmHg 08/16/24 17:05 FiO2 21.0 08/16/24 17:05 Blood Gas Comments Torsten well ms/cn 08/16/24 17:05 Sodium 141 mmol/L (136-145) 08/17/24 04:38 Corrected Sodium 142 mmol/L (136-145) 08/17/24 04:38 Potassium 3.8 mmol/L (3.5-5.1) 08/17/24 04:38 Chloride 105 mmol/L (98-107) 08/17/24 04:38 Carbon Dioxide 24.7 mmol/L (21-32) 08/17/24 04:38 BUN 56 mg/dL (7-18) H 08/17/24 04:38 Creatinine 2.71 mg/dL (0.70-1.30) H 08/17/24 04:38 Est GFR (MDRD) Af Amer 30 (>60) L 08/17/24 04:38 Est GFR (MDRD) Non-Af 25 (>60) L 08/17/24 04:38 Glucose 139 mg/dL (65-99) H 08/17/24 04:38 Lactic Acid 2.0 mmol/L (0.4-2.0) 08/16/24 18:50 Calcium 9.2 mg/dL (8.5-10.1) 08/17/24 04:38 Corrected Calcium 10.7 mg/dL (8.5-10.1) H 08/17/24 04:38 Magnesium 2.0 mg/dL (2.0-2.9) 08/17/24 04:38 Total Bilirubin 0.50 mg/dL (0.2-1.0) 08/17/24 04:38 AST 42 Units/L (15-37) H 08/17/24 04:38 ALT 19 Units/L (12-78) 08/17/24 04:38 Alkaline Phosphatase 63 Units/L (46-116) 08/17/24 04:38 Total Protein 6.8 g/dL (6.4-8.2) 08/17/24 04:38 Albumin 2.1 g/dL (3.4-5.0) L 08/17/24 04:38 Globulin 4.7 g/dL (2.5-4.5) H 08/17/24 04:38 Albumin/Globulin Ratio 0.4 Ratio (1.1-2.1) L 08/17/24 04:38 Diagnostic Tests White blood cell count at 4,100 this morning, down from 4,400 yesterday. Hemoglobin level is 12.1 today, decreased from 13.1. GFR improved from 23 to 30. Creatinine improved from 3.47 to 2.71, indicating renal recovery. Further lab tests planned for the next day. Review of Systems Constitutional: Other (Review of Systems (ROS) Respiratory - improved breathing noted, but still a little over 23 respirations. GI - positive bowel sounds noted, abdomen soft. No significant lower extremity edema. General - denies fever and chills, denies chest pain, and denies dizziness. Overall, he is feeling better fiorella) Eyes: No Symptoms Reported ENT: No Symptoms Reported Respiratory: Cough, Shortness of Breath, SOB with Excertion, Sputum and Wheezing; denies Hemoptysis Cardiovascular: No Symptoms Reported Gastrointestinal: No Symptoms Reported Genitourinary: No Symptoms Reported Musculoskeletal: No Symptoms Reported Skin: No Symptoms Reported Neurological: No Symptoms Reported Physical Exam Vital Signs: Vital Signs Temperature 97.7 F Temperature 97.8 F Pulse Rate [Left] 76 Pulse Rate [Left] 76 Respiratory Rate 21 Respiratory Rate 23 Blood Pressure [Left Arm] 171/80 Blood Pressure [Left Arm] 162/81 O2 Sat by Pulse Oximetry 93 O2 Sat by Pulse Oximetry 96 O2 Sat by Pulse Oximetry 93 Physical Examination Vital signs: BP 162/81, Pulse 76, Respiration 23, Temperature 97.8 F, O2 saturation 93% on 3 liters. Exam findings: NECK - no distention, long neck, diff use ronchi anteriorly and posteriorly with scattered wheezing but good air entry. ABDOMEN - soft, non-tender with positive bowel sounds. EXTREMITIES - no significant lower extremity edema noted. Oriented: Normal, Time, Person and Place Eyes: Normal Ear: Normal Nose: Normal Throat: Normal Respiratory: Rhonchi Throughout Cardiovascular: Normal : Normal Auscultation: Bowel Sounds: Normal Palpation: Normal Tenderness: Normal Psychiatric: Normal Mood Description: Calm Affect: Normal Speech Pattern: Clear and Appropriate Assessment/Plan (1) Pneumonia: Status: Acute Plan: IV antibiotics. (2) Acute respiratory distress: Status: Acute Plan: Assessment and Plan Pipo has shown improvement following treatment for RSV infection, COPD exacerbation, and pneumonia but continues to need respiratory support. The primary goal is to monitor his respiratory status and hydration levels, adjusting medications accordingly. The plan includes continuing current medications, further imaging with a chest x-ray, and routine laboratory tests to monitor kidney function and blood counts. Follow up should be conducted tomorrow to assess progress. (3) Hypoxia: Status: Acute Plan: Supplemental O2 therapy. (4) RSV (respiratory syncytial virus pneumonia): Status: Acute Plan: Supportive treatment with jet nebs, inhaled steroids, IV antibiotics and IV Solu-Medrol at 60 mg IV twice daily. O2 supplementation via nasal cannula as well. (5) Type 2 diabetes mellitus: Qualifiers: Diabetes mellitus senior living insulin use: without senior living use Diabetes mellitus complication status: with other specified complication Qualified Code(s): E11.69 - Type 2 diabetes mellitus with other specified complication Status: Acute Plan: Start regular insulin sliding scale per protocol. (6) GERD (gastroesophageal reflux disease): Qualifiers: Esophagitis presence: without esophagitis Qualified Code(s): K21.9 - Gastro-esophageal reflux disease without esophagitis Status: Acute Plan: Hold famotidine since the patient is currently receiving Protonix.. (7) Hypertension with goal blood pressure less than 130/80: Status: None Plan: Monitor blood pressure and treat accordingly. (8) Chronic kidney disease, stage 3 unspecified: Status: Acute Plan: IV hydration.
[2024-08-17] MEDS: NS 1,000 ML IV 1,000 ML IV SCH (10:32)
[2024-08-17] MEDS: LEVAQUIN PREMIX IV 750 MG 750 MG/150 ML BAG IV SCH (12:16)
[2024-08-17] MEDS: ZESTRIL TAB 40 MG PO SCH (12:16)
[2024-08-17] MEDS: PROCARDIA XL PO SCH (12:16)
[2024-08-17] MEDS: CATAPRES TAB 0.3 MG PO SCH (14:05)
[2024-08-17] MEDS ORDERED: SOLU-Medrol 125 MG VIAL IVP SCH (15:00)
[2024-08-17] MEDS: LIPITOR TAB 20 MG PO SCH (20:10)
[2024-08-17] MEDS: APRESOLINE TAB 25 MG PO SCH (20:10)
[2024-08-17] MEDS: LOVENOX INJ 150 MG SYR SC SCH (20:12)
[2024-08-17] MEDS: SOLU-Medrol 125 MG VIAL IVP SCH (20:12)
[2024-08-18 04:59] LABS: BASOPHILS % (AUTO) 0.1 % (0.2-1.0); HEMATOCRIT 34.6 % (42.0-54.0); HEMOGLOBIN 11.4 g/dL (13.5-18.0); LYMPHOCYTES # (AUTO) 0.4 X10^3/uL (1.3-2.9); MEAN CORPUSCULAR HEMOGLOBIN 29.6 pg (27.0-34.0); MEAN CORPUSCULAR HGB CONC 33.1 g/dL (33.0-35.0); MEAN CORPUSCULAR VOLUME 89.6 fL (80.0-100.0); MEAN PLATELET VOLUME 9.1 fL (7.4-11.0); MONOCYTES # (AUTO) 0.4 x10^3/uL (0.3-0.8); MONOCYTES % (AUTO) 9.4 % (0.0-13.0); NEUTROPHILS # (AUTO) 3.8 x10^3/uL (2.2-4.8); NEUTROPHILS % (AUTO) 81.5 % (42.0-75.0); PLATELET COUNT 213 X10^3/uL (150.0-450.0); RED BLOOD COUNT 3.86 X10^6/uL (4.7-6.0); RED CELL DISTRIBUTION WIDTH 15.4 % (11.6-16.5); WHITE BLOOD COUNT 4.7 X10^3/uL (3.6-10.0)
[2024-08-18] MEDS: COLACE CAP 100 MG PO PRN (05:00)
[2024-08-18] MEDS: MILK OF MAGNESIA PO PRN (05:01)
[2024-08-18 05:10] LABS: CALCIUM 9.5 mg/dL (8.5-10.1); CARBON DIOXIDE 28.6 mmol/L (21-32); COR CA(FOR HYPOALB) 11.1 mg/dL (8.5-10.1); CREATININE 1.98 mg/dL (0.70-1.30); MAGNESIUM 1.9 mg/dL (2.0-2.9); POTASSIUM 4.1 mmol/L (3.5-5.1); TOTAL PROTEIN 6.6 g/dL (6.4-8.2)
[2024-08-18 05:41] LABS: BAND NEUTROPHILS % 2 % (0-10); METAMYELOCYTES % 3; MYELOCYTES % 2; PLATELET MORPHOLOGY COMMENT NORMAL (NORMAL)
[2024-08-18] MEDS ORDERED: CONSULT PHARMACY - POTASSIUM & MAGNESIUM XX SCH (06:00)
[2024-08-18] MEDS: MAG-OX TAB PO SCH (09:13)
[2024-08-18] MEDS: ZYLOPRIM PO SCH (09:15)
[2024-08-18] MEDS ORDERED: LEVAQUIN PREMIX IV 250 MG 250 MG/50 ML BAG IV SCH (10:00)
[2024-08-18] MEDS: COREG TAB 12.5 MG PO SCH (13:37)
[2024-08-18] MEDS ORDERED: CITROMA ONE (15:54)
[2024-08-18] MEDS: CITROMA PO ONE (16:03)
[2024-08-18] MEDS: LOVENOX INJ 150 MG SYR SC SCH (21:11)
--- NOTE | 2024-08-18 21:31 | PCM.PROG ---
Progress Note Progress Note for Day of Date of Exam: 08/18/24 Subjective Subjective: History/Background Pipo has elevated blood pressure readings, with a recent reading of 180 over 90 at noon. He is currently on Clonidine, Hydralazine, and Lisinopril. 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 He also reported not having a bowel movement yesterday. Clinical Observations Pipo reports feeling better and having a good night. He is still coarse sounding upon auscultation. His breathing appears stable this morning. Past Medical Family Social History Allergies: Allergies No Known Drug Allergies Allergy (Unknown, Verified 08/14/24 17:04) Onset Date: 12/01/2018 Review of Systems ROS: No change since H&P Vital Signs and I&O's Vital Signs: Vital Signs Temperature 97.7 F Pulse Rate [Right Brachial] 60 Pulse Rate 47 Respiratory Rate 20 Blood Pressure [Right Arm] 160/80 O2 Sat by Pulse Oximetry 99 O2 Sat by Pulse Oximetry 100 Intake and Output: Intake & Output 08/16/24 08/17/24 08/18/24 08/19/24 11:59 11:59 11:59 11:59 Intake Total 1247 / 1247 3429 / 3429 863 / 863 Output Total 1000 / 1000 2620 / 2620 Balance 247 / 247 809 / 809 863 / 863 Physical Exam Oriented: Normal, Time, Person and Place Eyes: Normal Ear: Normal Nose: Normal Throat: Normal Respiratory: Generalized, Diminished, Wheezes and Rhonchi Cardiovascular: Normal : Normal Auscultation: Bowel Sounds: Normal Tenderness: Normal Psychiatric: Normal Mood Description: Calm Affect: Normal Speech Pattern: Clear and Appropriate Laboratory and Diagnostics 08/18/24 04:26 08/18/24 04:26 Labs: 08/16/24 16:35 Blood Blood Culture - Preliminary 08/16/24 16:30 Blood Blood Culture - Preliminary Laboratory WBC 4.7 X10^3/uL (3.6-10.0) 08/18/24 04:26 RBC 3.86 X10^6/uL (4.7-6.0) L 08/18/24 04:26 Hgb 11.4 g/dL (13.5-18.0) L 08/18/24 04:26 Hct 34.6 % (42.0-54.0) L 08/18/24 04:26 MCV 89.6 fL (80.0-100.0) 08/18/24 04:26 MCH 29.6 pg (27.0-34.0) 08/18/24 04:26 MCHC 33.1 g/dL (33.0-35.0) 08/18/24 04:26 RDW 15.4 % (11.6-16.5) 08/18/24 04:26 Plt Count 213 X10^3/uL (150.0-450.0) 08/18/24 04:26 Plt Count Comment Adequate (ADEQUATE) 08/18/24 04:26 MPV 9.1 fL (7.4-11.0) 08/18/24 04:26 Neut % (Auto) 81.5 % (42.0-75.0) H 08/18/24 04:26 Lymph % (Auto) 9.0 % (21.0-51.0) L 08/18/24 04:26 Walsh % (Auto) 9.4 % (0.0-13.0) 08/18/24 04:26 Eos % (Auto) 0.0 % (0.9-2.9) L 08/18/24 04:26 Baso % (Auto) 0.1 % (0.2-1.0) L 08/18/24 04:26 Neut # (Auto) 3.8 x10^3/uL (2.2-4.8) 08/18/24 04:26 Lymph # (Auto) 0.4 X10^3/uL (1.3-2.9) L 08/18/24 04:26 Walsh # (Auto) 0.4 x10^3/uL (0.3-0.8) 08/18/24 04:26 Eos # (Auto) 0.0 x10^3/uL (0.0-0.2) 08/18/24 04:26 Baso # (Auto) 0.0 X10^3/uL (0.0-0.1) 08/18/24 04:26 Absolute Nucleated RBC 0.2 /100WBC 08/18/24 04:26 Total Counted 100 08/18/24 04:26 Neutrophils % (Manual) 78 % (39-76) H 08/18/24 04:26 Band Neutrophils % 2 % (0-10) 08/18/24 04:26 Lymphocytes % (Manual) 8 % (13-43) L 08/18/24 04:26 Monocytes % (Manual) 7 % (4-9) 08/18/24 04:26 Eosinophils % (Manual) Not Reportable 08/18/24 04:26 Metamyelocytes % 3 08/18/24 04:26 Myelocytes % 2 08/18/24 04:26 Plt Morphology Comment Normal (NORMAL) 08/18/24 04:26 RBC Morphology Normal (NORMAL) 08/18/24 04:26 Sample Site Rrad 08/16/24 17:05 ABG pH 7.480 (7.35-7.45) H 08/16/24 17:05 ABG pCO2 34.0 mmHg (35.0-45.0) L 08/16/24 17:05 ABG pO2 46.0 mmHg (80.0-100.0) L* 08/16/24 17:05 ABG HCO3 25.3 mmol/L (22-26) 08/16/24 17:05 ABG O2 Saturation 85.0 % (90-100) L 08/16/24 17:05 ABG Base Excess 2.1 mmol/L (-2.0-2.0) H 08/16/24 17:05 Gunnra Test Pos 08/16/24 17:05 A-a Gradient 61.0 mmHg 08/16/24 17:05 FiO2 21.0 08/16/24 17:05 Blood Gas Comments Torsten well ms/cn 08/16/24 17:05 Sodium 144 mmol/L (136-145) 08/18/24 04:26 Corrected Sodium 146 mmol/L (136-145) H 08/18/24 04:26 Potassium 4.1 mmol/L (3.5-5.1) 08/18/24 04:26 Chloride 108 mmol/L (98-107) H 08/18/24 04:26 Carbon Dioxide 28.6 mmol/L (21-32) 08/18/24 04:26 BUN 45 mg/dL (7-18) H 08/18/24 04:26 Creatinine 1.98 mg/dL (0.70-1.30) H 08/18/24 04:26 Est GFR (MDRD) Af Amer 44 (>60) L 08/18/24 04:26 Est GFR (MDRD) Non-Af 36 (>60) L 08/18/24 04:26 Glucose 165 mg/dL (65-99) H 08/18/24 04:26 Lactic Acid 2.0 mmol/L (0.4-2.0) 08/16/24 18:50 Calcium 9.5 mg/dL (8.5-10.1) 08/18/24 04:26 Corrected Calcium 11.1 mg/dL (8.5-10.1) H 08/18/24 04:26 Magnesium 1.9 mg/dL (2.0-2.9) L 08/18/24 04:26 Total Bilirubin 0.30 mg/dL (0.2-1.0) 08/18/24 04:26 AST 21 Units/L (15-37) 08/18/24 04:26 ALT 19 Units/L (12-78) 08/18/24 04:26 Alkaline Phosphatase 68 Units/L (46-116) 08/18/24 04:26 Total Protein 6.6 g/dL (6.4-8.2) 08/18/24 04:26 Albumin 2.0 g/dL (3.4-5.0) L 08/18/24 04:26 Globulin 4.6 g/dL (2.5-4.5) H 08/18/24 04:26 Albumin/Globulin Ratio 0.4 Ratio (1.1-2.1) L 08/18/24 04:26 Plan (1) Pneumonia: Status: Acute Plan: IV antibiotics. Tuesday, 18 August 2024 Plan/Recommendations For bowel management, we will administer milk of magnesia 30 mL for constipation and if ineffective, consider a suppository or magnesium citrate. Follow-up on kidney function and potassium levels as necessary. (2) Acute respiratory distress: Status: Acute Plan: Assessment and Plan Pipo has shown improvement following treatment for RSV infection, COPD exacerbation, and pneumonia but continues to need respiratory support. The prima ry goal is to monitor his respiratory status and hydration levels, adjusting medications accordingly. The plan includes continuing current medications, further imaging with a chest x-ray, and routine laboratory tests to monitor kidney function and blood counts. Follow up should be conducted tomorrow to assess progress. (3) Hypoxia: Status: Acute Plan: Supplemental O2 therapy. (4) RSV (respiratory syncytial virus pneumonia): Status: Acute Plan: Supportive treatment with jet nebs, inhaled steroids, IV antibiotics and IV Solu-Medrol at 60 mg IV twice daily. O2 supplementation via nasal cannula as well. (5) Type 2 diabetes mellitus: Status: Acute Qualifiers: Diabetes mellitus terminal manager insulin use: without longterm use Diabetes mellitus complication status: with other specified complication Qualified Code(s): E11.69 - Type 2 diabetes mellitus with other specified complication Plan: Start regular insulin sliding scale per protocol. (6) GERD (gastroesophageal reflux disease): Status: Acute Qualifiers: Esophagitis presence: without esophagitis Qualified Code(s): K21.9 - Gastro-esophageal reflux disease without esophagitis Plan: Hold famotidine since the patient is currently receiving Protonix.. (7) Hypertension with goal blood pressure less than 130/80: Status: None Plan: The plan includes adjusting Pipo's hypertension management by adding Carvedilol 12.5 mg, to be taken twice a day. I will monitor his blood pressure closely and continue the current medications: Clonidine 0.3 mg three times a day, Hydralazine 25 mg, and Lisinopril 40 mg. (8) Chronic kidney disease, stage 3 unspecified: Status: Acute Plan: IV hydration.
[2024-08-19 05:36] LABS: BASOPHILS % (AUTO) 0.1 % (0.2-1.0); HEMATOCRIT 33.7 % (42.0-54.0); HEMOGLOBIN 10.9 g/dL (13.5-18.0); LYMPHOCYTES # (AUTO) 0.8 X10^3/uL (1.3-2.9); MEAN CORPUSCULAR HEMOGLOBIN 29.3 pg (27.0-34.0); MEAN CORPUSCULAR HGB CONC 32.4 g/dL (33.0-35.0); MEAN CORPUSCULAR VOLUME 90.3 fL (80.0-100.0); MEAN PLATELET VOLUME 8.7 fL (7.4-11.0); MONOCYTES # (AUTO) 0.5 x10^3/uL (0.3-0.8); MONOCYTES % (AUTO) 6.6 % (0.0-13.0); NEUTROPHILS # (AUTO) 5.7 x10^3/uL (2.2-4.8); NEUTROPHILS % (AUTO) 81.3 % (42.0-75.0); PLATELET COUNT 231 X10^3/uL (150.0-450.0); RED BLOOD COUNT 3.73 X10^6/uL (4.7-6.0); RED CELL DISTRIBUTION WIDTH 15.3 % (11.6-16.5)
[2024-08-19 05:43] LABS: ALBUMIN 1.8 g/dL (3.4-5.0); CALCIUM 9.2 mg/dL (8.5-10.1); CREATININE 1.7 mg/dL (0.70-1.30); POTASSIUM 4.8 mmol/L (3.5-5.1)
[2024-08-19 05:49] LABS: CARBON DIOXIDE 29.1 mmol/L (21-32)
[2024-08-19 06:56] LABS: PLATELET MORPHOLOGY COMMENT NORMAL (NORMAL)
--- NOTE | 2024-08-19 09:29 | RAD ---
EXAM: AP chest HISTORY: Pneumonia COMPARISON: 08/16/2024 FINDINGS: Bilateral asymmetric airspace disease again noted although improved since 2 days prior. Heart size remains upper normal. IMPRESSION: Persistent but improved pneumonic infiltrates. THIS IS AN ELECTRONICALLY VERIFIED FINAL REPORT 08/19/2024 9:26 AM - Electronically signed by Carrillo Diaz MD
[2024-08-19] MEDS: APRESOLINE TAB 25 MG PO SCH ×2 (12:18→16:42)
--- NOTE | 2024-08-19 22:52 | PCM.PROG ---
Progress Note Progress Note for Day of Date of Exam: 08/19/24 Subjective Subjective: History/Background The patient has a diagnosis of RSV respiratory infection and chronic kidney disease stage 3A. Clinical Observations Mr. Pipo Salazar' blood pressure today is 179/84 mmHg. Pulse is 57 bpm. Respiration rate is 18 breaths per minute. Temperature is 97.4 degrees Fahrenheit. Oxygen saturation (SBO2) is 99% on 2 liters of nasal cannula with a fractional inspired oxygen (FIO2) of 28%. White blood cell count is 7,000 with a hemoglobin level of 10.9 grams. Neutrophil count is recorded at 81.3%, and the manual differential shows 84% neutrophils, 9% lymphocytes, and 7% monocytes. Electrolyte panel shows sodium at 144, potassium at 4.8, chloride at 107, CO2 at 29.1, BUN at 47, and creatinine at 1.70 with an estimated GFR of 52. Glucose is 134, calcium is 9.2, creatinine calcium is 11, and magnesium is 2.2. Liver function tests (LFTs) are noted as normal. Albumin is low at 1.8 grams, down from 2.0 yesterday. The chest X-ray indicates persistent but improved pneumonic infiltrates. Past Medical Family Social History Allergies: Allergies No Known Drug Allergies Allergy (Unknown, Verified 08/14/24 17:04) Onset Date: 12/01/2018 Review of Systems ROS: No change since H&P Vital Signs and I&O's Vital Signs: Vital Signs Temperature 98 F Temperature 98.1 F Pulse Rate [Right Brachial] 54 Pulse Rate [Right Brachial] 50 Pulse Rate 69 Respiratory Rate 21 Respiratory Rate 18 Blood Pressure [Right Arm] 162/78 Blood Pressure [Right Arm] 189/91 Blood Pressure [Right Arm] 210/88 O2 Sat by Pulse Oximetry 99 O2 Sat by Pulse Oximetry 97 O2 Sat by Pulse Oximetry 100 Intake and Output: Intake & Output 08/17/24 08/18/24 08/19/24 08/20/24 11:59 11:59 11:59 11:59 Intake Total 1247 / 1247 3429 / 3429 2068 / 2068 1737 / 1737 Output Total 1000 / 1000 2620 / 2620 1100 / 1100 1050 / 1050 Balance 247 / 247 809 / 809 968 / 968 687 / 687 Physical Exam Oriented: Normal, Time, Person and Place Eyes: Normal Ear: Normal Nose: Normal Throat: Normal Respiratory: Generalized, Diminished, Wheezes and Rhonchi Cardiovascular: Normal : Normal Auscultation: Bowel Sounds: Normal Tenderness: Normal Psychiatric: Normal Mood Description: Calm Affect: Normal Speech Pattern: Clear and Appropriate Laboratory and Diagnostics 08/19/24 04:56 08/19/24 04:56 Labs: 08/16/24 16:35 Blood Blood Culture - Preliminary 08/16/24 16:30 Blood Blood Culture - Preliminary Laboratory WBC 7.0 X10^3/uL (3.6-10.0) 08/19/24 04:56 RBC 3.73 X10^6/uL (4.7-6.0) L 08/19/24 04:56 Hgb 10.9 g/dL (13.5-18.0) L 08/19/24 04:56 Hct 33.7 % (42.0-54.0) L 08/19/24 04:56 MCV 90.3 fL (80.0-100.0) 08/19/24 04:56 MCH 29.3 pg (27.0-34.0) 08/19/24 04:56 MCHC 32.4 g/dL (33.0-35.0) L 08/19/24 04:56 RDW 15.3 % (11.6-16.5) 08/19/24 04:56 Plt Count 231 X10^3/uL (150.0-450.0) 08/19/24 04:56 Plt Count Comment Adequate (ADEQUATE) 08/19/24 04:56 MPV 8.7 fL (7.4-11.0) 08/19/24 04:56 Neut % (Auto) 81.3 % (42.0-75.0) H 08/19/24 04:56 Lymph % (Auto) 12.0 % (21.0-51.0) L 08/19/24 04:56 Eagle % (Auto) 6.6 % (0.0-13.0) 08/19/24 04:56 Eos % (Auto) 0.0 % (0.9-2.9) L 08/19/24 04:56 Baso % (Auto) 0.1 % (0.2-1.0) L 08/19/24 04:56 Neut # (Auto) 5.7 x10^3/uL (2.2-4.8) H 08/19/24 04:56 Lymph # (Auto) 0.8 X10^3/uL (1.3-2.9) L 08/19/24 04:56 Eagle # (Auto) 0.5 x10^3/uL (0.3-0.8) 08/19/24 04:56 Eos # (Auto) 0.0 x10^3/uL (0.0-0.2) 08/19/24 04:56 Baso # (Auto) 0.0 X10^3/uL (0.0-0.1) 08/19/24 04:56 Absolute Nucleated RBC 0.2 /100WBC 08/19/24 04:56 Total Counted 100 08/19/24 04:56 Neutrophils % (Manual) 84 % (39-76) H 08/19/24 04:56 Band Neutrophils % 2 % (0-10) 08/18/24 04:26 Lymphocytes % (Manual) 9 % (13-43) L 08/19/24 04:56 Monocytes % (Manual) 7 % (4-9) 08/19/24 04:56 Eosinophils % (Manual) Not Reportable 08/18/24 04:26 Metamyelocytes % 3 08/18/24 04:26 Myelocytes % 2 08/18/24 04:26 Plt Morphology Comment Normal (NORMAL) 08/19/24 04:56 RBC Morphology Normal (NORMAL) 08/19/24 04:56 Sample Site Rrad 08/16/24 17:05 ABG pH 7.480 (7.35-7.45) H 08/16/24 17:05 ABG pCO2 34.0 mmHg (35.0-45.0) L 08/16/24 17:05 ABG pO2 46.0 mmHg (80.0-100.0) L* 08/16/24 17:05 ABG HCO3 25.3 mmol/L (22-26) 08/16/24 17:05 ABG O2 Saturation 85.0 % (90-100) L 08/16/24 17:05 ABG Base Excess 2.1 mmol/L (-2.0-2.0) H 08/16/24 17:05 Gunnar Test Pos 08/16/24 17:05 A-a Gradient 61.0 mmHg 08/16/24 17:05 FiO2 21.0 08/16/24 17:05 Blood Gas Comments Torsten well ms/cn 08/16/24 17:05 Sodium 143 mmol/L (136-145) 08/19/24 04:56 Corrected Sodium 144 mmol/L (136-145) 08/19/24 04:56 Potassium 4.8 mmol/L (3.5-5.1) 08/19/24 04:56 Chloride 107 mmol/L (98-107) 08/19/24 04:56 Carbon Dioxide 29.1 mmol/L (21-32) 08/19/24 04:56 BUN 47 mg/dL (7-18) H 08/19/24 04:56 Creatinine 1.70 mg/dL (0.70-1.30) H 08/19/24 04:56 Est GFR (MDRD) Af Amer 52 (>60) L 08/19/24 04:56 Est GFR (MDRD) Non-Af 43 (>60) L 08/19/24 04:56 Glucose 134 mg/dL (65-99) H 08/19/24 04:56 Lactic Acid 2.0 mmol/L (0.4-2.0) 08/16/24 18:50 Calcium 9.2 mg/dL (8.5-10.1) 08/19/24 04:56 Corrected Calcium 11.0 mg/dL (8.5-10.1) H 08/19/24 04:56 Magnesium 2.2 mg/dL (2.0-2.9) 08/19/24 04:56 Total Bilirubin 0.20 mg/dL (0.2-1.0) 08/19/24 04:56 AST 23 Units/L (15-37) 08/19/24 04:56 ALT 22 Units/L (12-78) 08/19/24 04:56 Alkaline Phosphatase 71 Units/L (46-116) 08/19/24 04:56 Total Protein 6.0 g/dL (6.4-8.2) L 08/19/24 04:56 Albumin 1.8 g/dL (3.4-5.0) L 08/19/24 04:56 Globulin 4.2 g/dL (2.5-4.5) 08/19/24 04:56 Albumin/Globulin Ratio 0.4 Ratio (1.1-2.1) L 08/19/24 04:56 Resp Viral Panel (PCR) See scanned report 08/16/24 20:57 Radiology Reviewed: Yes Plan (1) Pneumonia: Status: Acute Plan: 19 August 2024 1. Healthcare-Associated Pneumonia - Positive cultures for S. pneumoniae and H. influenzae - Continue IV antibiotics: - Ceftriaxone - Levofloxacin 750mg IV q48h - Plan repeat CXR today and tomorrow to monitor infiltrate resolution 18 August 2024 Plan/Recommendations For bowel management, we will administer milk of magnesia 30 mL for constipation and if ineffective, consider a suppository or magnesium citrate. Follow-up on kidney function and potassium levels as necessary. (2) Acute respiratory distress: Status: Acute Plan: Assessment and Plan Pipo has shown improvement following treatment for RSV infection, COPD exacerbation, and pneumonia but continues to need respiratory support. The primary goal is to monitor his respiratory status and hydration levels, adjusting medications accordingly. The plan includes continuing current med ications, further imaging with a chest x-ray, and routine laboratory tests to monitor kidney function and blood counts. Follow up should be conducted tomorrow to assess progress. (3) Hypoxia: Status: Acute Plan: Supplemental O2 therapy. (4) RSV (respiratory syncytial virus pneumonia): Status: Acute Plan: - Supportive care - Continue oxygen support via nasal cannula Supportive treatment with jet nebs, inhaled steroids, IV antibiotics and IV Solu-Medrol at 60 mg IV twice daily. (5) Type 2 diabetes mellitus: Status: Acute Qualifiers: Diabetes mellitus assisted insulin use: without manager terminal use Diabetes mellitus complication status: with other specified complication Qualified Code(s): E11.69 - Type 2 diabetes mellitus with other specified complication Plan: Start regular insulin sliding scale per protocol. (6) GERD (gastroesophageal reflux disease): Status: Acute Qualifiers: Esophagitis presence: without esophagitis Qualified Code(s): K21.9 - Gastro-esophageal reflux disease without esophagitis Plan: Hold famotidine since the patient is currently receiving Protonix.. (7) Hypertension with goal blood pressure less than 130/80: Status: None Plan: 19 August 2024 Change hydralazine to 25 mg 4 times daily from twice daily. The plan includes adjusting Pipo's hypertension management by adding Carvedilol 12.5 mg, to be taken twice a day. I will monitor his blood pressure closely and continue the current medications: Clonidine 0.3 mg three times a day, Hydralazine 25 mg, and Lisinopril 40 mg. (8) Chronic kidney disease, stage 3 unspecified: Status: Acute Plan: IV hydration.
[2024-08-20 05:05] LABS: BASOPHILS % (AUTO) 0 % (0.2-1.0); HEMATOCRIT 36.6 % (42.0-54.0); LYMPHOCYTES # (AUTO) 0.9 X10^3/uL (1.3-2.9); LYMPHOCYTES % (AUTO) 11.2 % (21.0-51.0); MEAN CORPUSCULAR HEMOGLOBIN 29.5 pg (27.0-34.0); MEAN CORPUSCULAR HGB CONC 32.8 g/dL (33.0-35.0); MEAN CORPUSCULAR VOLUME 89.9 fL (80.0-100.0); MEAN PLATELET VOLUME 8.6 fL (7.4-11.0); MONOCYTES # (AUTO) 0.4 x10^3/uL (0.3-0.8); MONOCYTES % (AUTO) 4.7 % (0.0-13.0); NEUTROPHILS # (AUTO) 6.4 x10^3/uL (2.2-4.8); NEUTROPHILS % (AUTO) 84.1 % (42.0-75.0); PLATELET COUNT 249 X10^3/uL (150.0-450.0); RED BLOOD COUNT 4.07 X10^6/uL (4.7-6.0); RED CELL DISTRIBUTION WIDTH 14.8 % (11.6-16.5); WHITE BLOOD COUNT 7.6 X10^3/uL (3.6-10.0)
[2024-08-20 05:21] LABS: CALCIUM 9.2 mg/dL (8.5-10.1); CARBON DIOXIDE 26.5 mmol/L (21-32); COR CA(FOR HYPOALB) 10.8 mg/dL (8.5-10.1); CREATININE 1.53 mg/dL (0.70-1.30); POTASSIUM 4.9 mmol/L (3.5-5.1); TOTAL PROTEIN 6.2 g/dL (6.4-8.2)
[2024-08-20 05:59] LABS: PLATELET MORPHOLOGY COMMENT NORMAL (NORMAL)
[2024-08-20] MEDS: LEVAQUIN PREMIX IV 750 MG 750 MG/150 ML BAG IV SCH (10:39)
--- NOTE | 2024-08-20 15:08 | RAD ---
EXAM:CHEST x-ray, 1 VIEWHISTORY:PNA -COMPARISON:X-ray from previous dayFINDINGS:Infiltrative density in the periphery of the left lung persists. This is likely pneumonia. Right lung is clear.There is possible mild cardiomegaly without CHF. No pneumothorax or pleural effusion is seen.IMPRESSION:Likely persistent pneumonia in the left lung. Recommend continued x-ray follow-up to document resolution.THIS IS AN ELECTRONICALLY VERIFIED FINAL [id number]/2024 3:05 PM - Electronically signed by Richardson Gee MD
[2024-08-21 06:23] LABS: BASOPHILS % (AUTO) 0.2 % (0.2-1.0); EOSINOPHILS % (AUTO) 0.2 % (0.9-2.9); HEMATOCRIT 36.5 % (42.0-54.0); HEMOGLOBIN 12.1 g/dL (13.5-18.0); LYMPHOCYTES # (AUTO) 1.5 X10^3/uL (1.3-2.9); LYMPHOCYTES % (AUTO) 15.1 % (21.0-51.0); MEAN CORPUSCULAR HEMOGLOBIN 29.8 pg (27.0-34.0); MEAN CORPUSCULAR HGB CONC 33.1 g/dL (33.0-35.0); MEAN PLATELET VOLUME 8.8 fL (7.4-11.0); MONOCYTES # (AUTO) 0.7 x10^3/uL (0.3-0.8); MONOCYTES % (AUTO) 7.5 % (0.0-13.0); NEUTROPHILS # (AUTO) 7.4 x10^3/uL (2.2-4.8); PLATELET COUNT 248 X10^3/uL (150.0-450.0); RED BLOOD COUNT 4.06 X10^6/uL (4.7-6.0); RED CELL DISTRIBUTION WIDTH 14.8 % (11.6-16.5); WHITE BLOOD COUNT 9.7 X10^3/uL (3.6-10.0)
[2024-08-21 06:30] LABS: ALANINE AMINOTRANSFERASE 15 Units/L (12-78); ALBUMIN 1.9 g/dL (3.4-5.0); ALKALINE PHOSPHATASE 67 Units/L (46-116); ASPARTATE AMINO TRANSFERASE 19 Units/L (15-37); BLOOD UREA NITROGEN 45 mg/dL (7-18); CARBON DIOXIDE 27.4 mmol/L (21-32); CHLORIDE 105 mmol/L (98-107); COR CA(FOR HYPOALB) 10.7 mg/dL (8.5-10.1); CREATININE 1.55 mg/dL (0.70-1.30); GLUCOSE 90 mg/dL (65-99); MAGNESIUM 2.1 mg/dL (2.0-2.9); POTASSIUM 4.2 mmol/L (3.5-5.1); SODIUM 139 mmol/L (136-145); TOTAL PROTEIN 5.8 g/dL (6.4-8.2); eGFR NON BLACK RACES 48 (>60)
[2024-08-21 07:12] LABS: PLATELET MORPHOLOGY COMMENT NORMAL (NORMAL)
--- NOTE | 2024-08-21 08:12 | RAD ---
EXAM:CHEST x-ray, 1 VIEWHISTORY:Pnuemonia; [id number]:X-ray 08/18/2024FINDINGS:Vague infiltrate persist in the left mid lung. This is probably pneumonia. Right lung appears mostly clear but there may be very minimal residual infiltrate in the right middle lobe region. Patient's size and portable technique limit evaluation. Heart is normal in size. No pneumothorax or pleural effusion is seen.IMPRESSION:Probable pneumonia appears similar to prior study.THIS IS AN ELECTRONICALLY VERIFIED FINAL [id number]/21/2024 7:58 AM - Electronically signed by Richardson Gee MD
[2024-08-21 08:54] VITALS: BP 178/90; RESP 21; TEMP 97.9
[2024-08-21 09:16] VITALS: PULSE 77; O2SAT 97
--- NOTE | 2024-08-21 10:03 | W.DIS.FURT ---
Summary of Discharge Discharge Summary of Date Date of Exam: 08/21/24 Admission Date Date of Admission: 08/16/24 Admission Diagnosis Patient Problems (Updated 08/17/24 @ 10:21 by Yossi Higuera MD) Pneumonia (Acute) J18.9 Acute respiratory distress (Acute) R06.03 Hypoxia (Acute) R09.02 Hospital Course: Patient is a 68-year-old male that was admitted for RSV pneumonia. He received bronchodilators, antibiotics, supplemental oxygen. He responded well to treatments. He no longer required supplemental oxygen. Symptoms have significantly improved. Patient is ambulating and tolerating p.o. intake. Patient was discharged in stable condition. Rx cefdinir. Instructed to follow- up with PCP in 1 week. Due to his significant hypertension while on medications, recommend that he follow-up with his cardiology for medication adjustment. Vital Signs: Vital Signs (72 hours) 08/18/24 12:00 08/18/24 16:00 08/18/24 20:02 Temperature 97.9 F 97.7 F Pulse Rate Pulse Rate [Right Brachial] 70 60 Respiratory Rate 20 20 Blood Pressure [Left Arm] Blood Pressure [Right Arm] 180/90 160/80 O2 Sat by Pulse Oximetry 95 100 Oxygen Delivery Method Nasal Cannula Nasal Cannula Nasal Cannula Oxygen Flow Rate 2 2 2 FIO2% 28 08/18/24 20:02 08/18/24 20:00 08/18/24 19:00 Temperature 97.9 F Pulse Rate 47 L Pulse Rate [Right Brachial] 63 Respiratory Rate 21 Blood Pressure [Left Arm] Blood Pressure [Right Arm] 172/84 O2 Sat by Pulse Oximetry 99 97 Oxygen Delivery Method Nasal Cannula Nasal Cannula Oxygen Flow Rate 2 2 FIO2% 08/19/24 00:00 08/19/24 00:01 08/19/24 00:05 Temperature 98.2 F Pulse Rate Pulse Rate [Right Brachial] 53 L Respiratory Rate 20 Blood Pressure [Left Arm] Blood Pressure [Right Arm] 190/91 176/82 O2 Sat by Pulse Oximetry 96 Oxygen Delivery Method Room Air Nasal Cannula Oxygen Flow Rate 2 FIO2% 28 08/19/24 04:00 08/19/24 09:30 08/19/24 09:32 Temperature 98 F Pulse Rate 57 L Pulse Rate [Right Brachial] 55 L Respiratory Rate 18 Blood Pressure [Left Arm] Blood Pressure [Right Arm] 178/89 O2 Sat by Pulse Oximetry 99 99 Oxygen Delivery Method Nasal Cannula Nasal Cannula Oxygen Flow Rate 2 FIO2% 28 08/19/24 08:00 08/19/24 07:00 08/19/24 12:00 Temperature 97.4 F L 97.8 F Pulse Rate Pulse Rate [Right Brachial] 55 L 50 L Respiratory Rate 18 20 Blood Pressure [Left Arm] Blood Pressure [Right Arm] 179/84 194/82 O2 Sat by Pulse Oximetry 98 100 Oxygen Delivery Method Nasal Cannula Nasal Cannula Nasal Cannula Oxygen Flow Rate 2 FIO2% 08/19/24 16:00 08/19/24 19:19 08/19/24 19:20 Temperature 98.1 F 98 F Pulse Rate Pulse Rate [Right Brachial] 50 L 54 L Respiratory Rate 18 21 Blood Pressure [Left Arm] Blood Pressure [Right Arm] 210/88 189/91 162/78 O2 Sat by Pulse Oximetry 100 97 Oxygen Delivery Method Nasal Cannula Nasal Cannula Oxygen Flow Rate FIO2% 08/19/24 19:00 08/19/24 20:00 08/19/24 20:00 Temperature Pulse Rate 69 Pulse Rate [Right Brachial] Respiratory Rate Blood Pressure [Left Arm] Blood Pressure [Right Arm] O2 Sat by Pulse Oximetry 99 Oxygen Delivery Method Nasal Cannula Nasal Cannula Oxygen Flow Rate 2 2 FIO2% 28 08/20/24 00:00 08/20/24 04:00 08/20/24 04:51 Temperature 97.9 F 97.9 F Pulse Rate Pulse Rate [Right Brachial] 54 L 53 L Respiratory Rate 18 21 Blood Pressure [Left Arm] Blood Pressure [Right Arm] 181/85 189/93 178/88 O2 Sat by Pulse Oximetry 95 98 Oxygen Delivery Method Nasal Cannula Nasal Cannula Oxygen Flow Rate FIO2% 08/20/24 08:00 08/20/24 07:00 08/20/24 09:22 Temperature 97.2 F L Pulse Rate Pulse Rate [Right Brachial] 57 L Respiratory Rate 18 Blood Pressure [Left Arm] Blood Pressure [Right Arm] 180/91 O2 Sat by Pulse Oximetry 99 Oxygen Delivery Method Nasal Cannula Nasal Cannula Oxygen Flow Rate 2 2 FIO2% 28 08/20/24 12:00 08/20/24 16:00 08/20/24 20:00 Temperature 97.5 F L 97.3 F L 98.2 F Pulse Rate Pulse Rate [Right Brachial] 52 L 55 L 85 Respiratory Rate 19 19 21 Blood Pressure [Left Arm] 210/97 Blood Pressure [Right Arm] 180/85 178/91 O2 Sat by Pulse Oximetry 97 95 97 Oxygen Delivery Method Room Air Room Air Oxygen Flow Rate FIO2% 08/20/24 21:00 08/20/24 19:00 08/20/24 22:09 Temperature Pulse Rate Pulse Rate [Right Brachial] Respiratory Rate Blood Pressure [Left Arm] 180/90 159/77 Blood Pressure [Right Arm] O2 Sat by Pulse Oximetry Oxygen Delivery Method Room Air Oxygen Flow Rate FIO2% 08/20/24 21:20 08/20/24 21:20 08/21/24 00:00 Temperature 98.2 F Pulse Rate 54 L Pulse Rate [Right Brachial] 56 L Respiratory Rate 20 Blood Pressure [Left Arm] Blood Pressure [Right Arm] 193/89 O2 Sat by Pulse Oximetry 97 95 Oxygen Delivery Method Room Air Room Air Oxygen Flow Rate FIO2% 08/21/24 00:34 08/21/24 04:00 08/21/24 08:00 Temperature 98.3 F 97.9 F Pulse Rate Pulse Rate [Right Brachial] 60 56 L Respiratory Rate 20 21 Blood Pressure [Left Arm] Blood Pressure [Right Arm] 137/74 147/81 178/90 O2 Sat by Pulse Oximetry 96 100 Oxygen Delivery Method Room Air Room Air Oxygen Flow Rate FIO2% 08/21/24 08:40 08/21/24 08:40 08/21/24 07:00 Temperature Pulse Rate 77 Pulse Rate [Right Brachial] Respiratory Rate Blood Pressure [Left Arm] Blood Pressure [Right Arm] O2 Sat by Pulse Oximetry 97 Oxygen Delivery Method Room Air Room Air Oxygen Flow Rate FIO2% Labs: Laboratory Last Values WBC 9.7 X10^3/uL (3.6-10.0) 08/21/24 05:35 RBC 4.06 X10^6/uL (4.7-6.0) L 08/21/24 05:35 Hgb 12.1 g/dL (13.5-18.0) L 08/21/24 05:35 Hct 36.5 % (42.0-54.0) L 08/21/24 05:35 MCV 90.0 fL (80.0-100.0) 08/21/24 05:35 MCH 29.8 pg (27.0-34.0) 08/21/24 05:35 MCHC 33.1 g/dL (33.0-35.0) 08/21/24 05:35 RDW 14.8 % (11.6-16.5) 08/21/24 05:35 Plt Count 248 X10^3/uL (150.0-450.0) 08/21/24 05:35 Plt Count Comment Adequate (ADEQUATE) 08/21/24 05:35 MPV 8.8 fL (7.4-11.0) 08/21/24 05:35 Neut % (Auto) 77.0 % (42.0-75.0) H 08/21/24 05:35 Lymph % (Auto) 15.1 % (21.0-51.0) L 08/21/24 05:35 [place] % (Auto) 7.5 % (0.0-13.0) 08/21/24 05:35 Eos % (Auto) 0.2 % (0.9-2.9) L 08/21/24 05:35 Baso % (Auto) 0.2 % (0.2-1.0) 08/21/24 05:35 Neut # (Auto) 7.4 x10^3/uL (2.2-4.8) H 08/21/24 05:35 Lymph # (Auto) 1.5 X10^3/uL (1.3-2.9) 08/21/24 05:35 [place] # (Auto) 0.7 x10^3/uL (0.3-0.8) 08/21/24 05:35 Eos # (Auto) 0.0 x10^3/uL (0.0-0.2) 08/21/24 05:35 Baso # (Auto) 0.0 X10^3/uL (0.0-0.1) 08/21/24 05:35 Absolute Nucleated RBC 0.1 /100WBC 08/21/24 05:35 Total Counted 100 08/21/24 05:35 Neutrophils % (Manual) 79 % (39-76) H 08/21/24 05:35 Band Neutrophils % 2 % (0-10) 08/18/24 04:26 Lymphocytes % (Manual) 17 % (13-43) 08/21/24 05:35 Monocytes % (Manual) 3 % (4-9) L 08/21/24 05:35 Eosinophils % (Manual) 1 % (0-6) 08/21/24 05:35 Metamyelocytes % 3 08/18/24 04:26 Myelocytes % 2 08/18/24 04:26 Plt Morphology Comment Normal (NORMAL) 08/21/24 05:35 RBC Morphology Normal (NORMAL) 08/21/24 05:35 Sample Site Rrad 08/16/24 17:05 ABG pH 7.480 (7.35-7.45) H 08/16/24 17:05 ABG pCO2 34.0 mmHg (35.0-45.0) L 08/16/24 17:05 ABG pO2 46.0 mmHg (80.0-100.0) L* 08/16/24 17:05 ABG HCO3 25.3 mmol/L (22-26) 08/16/24 17:05 ABG O2 Saturation 85.0 % (90-100) L 08/16/24 17:05 ABG Base Excess 2.1 mmol/L (-2.0-2.0) H 08/16/24 17:05 Gunnar Test Pos 08/16/24 17:05 A-a Gradient 61.0 mmHg 08/16/24 17:05 FiO2 21.0 08/16/24 17:05 Blood Gas Comments Torsten well ms/cn 08/16/24 17:05 Sodium 139 mmol/L (136-145) 08/21/24 05:35 Corrected Sodium TNP 08/21/24 05:35 Potassium 4.2 mmol/L (3.5-5.1) 08/21/24 05:35 Chloride 105 mmol/L (98-107) 08/21/24 05:35 Carbon Dioxide 27.4 mmol/L (21-32) 08/21/24 05:35 BUN 45 mg/dL (7-18) H 08/21/24 05:35 Creatinine 1.55 mg/dL (0.70-1.30) H 08/21/24 05:35 Est GFR (MDRD) Af Amer 58 (>60) L 08/21/24 05:35 Est GFR (MDRD) Non-Af 48 (>60) L 08/21/24 05:35 Glucose 90 mg/dL (65-99) 08/21/24 05:35 Lactic Acid 2.0 mmol/L (0.4-2.0) 08/16/24 18:50 Calcium 9.0 mg/dL (8.5-10.1) 08/21/24 05:35 Corrected Calcium 10.7 mg/dL (8.5-10.1) H 08/21/24 05:35 Magnesium 2.1 mg/dL (2.0-2.9) 08/21/24 05:35 Total Bilirubin 0.30 mg/dL (0.2-1.0) 08/21/24 05:35 AST 19 Units/L (15-37) 08/21/24 05:35 ALT 15 Units/L (12-78) 08/21/24 05:35 Alkaline Phosphatase 67 Units/L (46-116) 08/21/24 05:35 Total Protein 5.8 g/dL (6.4-8.2) L 08/21/24 05:35 Albumin 1.9 g/dL (3.4-5.0) L 08/21/24 05:35 Globulin 3.9 g/dL (2.5-4.5) 08/21/24 05:35 Albumin/Globulin Ratio 0.5 Ratio (1.1-2.1) L 08/21/24 05:35 Resp Viral Panel (PCR) See scanned report 08/16/24 20:57 Reason For Visit: PNUEMONIA, COPD, HYPOXIA,RESP DISTRESS Discharge Date Discharge Date: 08/21/24 Discharge Diagnosis All Active Problems (Updated 08/17/24 @ 10:21 by Yossi Higuera MD) Chronic kidney disease, stage 3 unspecified (Acute) Pneumonia (Acute) Acute respiratory distress (Acute) Hypoxia (Acute) Respiratory distress determined by examination (Acute) RSV (respiratory syncytial virus pneumonia) (Acute) Acute viral syndrome (Acute) Type 2 diabetes mellitus (Acute) Encounter for monitoring opioid maintenance therapy (Acute) Rhinosinusitis (Acute) GERD (gastroesophageal reflux disease) (Acute) Hyperlipidemia (Acute) Leg wound, left (Acute) Need for [id number]-[id number] (Tdap) vaccine (Acute) Prostate cancer screening (Acute) Medicare annual wellness visit, subsequent (Acute) Flu vaccine need (Acute) Skin cysts, generalized (Acute) Exacerbation of gout (Acute) Lipoma (Acute) Screening for AAA (abdominal aortic aneurysm) (Acute) History of smoking 30 or more pack years (Acute) Medicare annual wellness visit, initial (Acute) Colon cancer screening (Acute) Gout (Acute) Plan of Treatment: Continue with present treatment and follow up plan. Pt is to keep follow up appointment as instructed and take medications as ordered. Discharge Medications Discharge Medications: No Known Drug Allergies Allergy (Unknown, Verified 08/14/24 17:04) New Prescriptions carvedilol 6.25 mg tablet 6.25 mg PO BID 30 days #60 tabs 08/20/24 [Rx] cefdinir 300 mg capsule 300 mg PO BID 5 days #10 caps 08/20/24 [Rx] hydralazine 50 mg tablet 50 mg PO Q6H 30 days #120 tabs 08/20/24 [Rx] Discharge Plan Discharge Plan Hospital Course: Patient is a 68-year-old male that was admitted for RSV pneumonia. He received bronchodilators, antibiotics, supplemental oxygen. He responded well to treatments. He no longer required supplemental oxygen. Symptoms have significantly improved. Patient is ambulating and tolerating p.o. intake. Patient was discharged in stable condition. Rx cefdinir. Instructed to follow- up with PCP in 1 week. Due to his significant hypertension while on medications, recommend that he follow-up with his cardiology for medication adjustment. Patient Disposition: 01 HOME, SELF-CARE Condition: Stable Health Concerns: Post Hospitalization: new medications and changes needed to prevent readmission or further decline. Pt educated and given instructions on all concerns. Care Plan Goals: Problem: Respiratory Complications Goal: Improved Uncomplicated Respiratory Status Instructions: Follow provided instructions. Follow up with primary physician as directed. Contact primary care physician or report to the closest Emergency Room if condition worsens. Plan of Treatment: Continue with present treatment and follow up plan. Pt is to keep follow up appointment as instructed and take medications as ordered. Prescription drug monitoring program results: PDMP reviewed and no concerns identified Prescriptions: New hydralazine 50 mg tablet 50 mg PO Q6H 30 Days Qty: 120 0RF carvedilol 6.25 mg tablet 6.25 mg PO BID 30 Days Qty: 60 0RF cefdinir 300 mg capsule 300 mg PO BID 5 Days Qty: 10 0RF Continued atorvastatin 20 mg tablet 20 mg PO QDAY 90 Days Qty: 90 1RF famotidine 20 mg tablet 20 mg PO BID 90 Days Qty: 180 1RF tadalafil [Cialis] 10 mg tablet 10 mg PO QDAY PRN (Reason: sexual activity) 30 Days Qty: 30 2RF Rx Instructions: administer approximately 30min before sexual activity; do not use more than 1 dose per 24hrs allopurinol 100 mg tablet 100 mg PO QDAY 90 Days Qty: 90 1RF clonidine HCl 0.3 mg tablet 0.3 mg PO TID 90 Days Qty: 270 1RF lisinopril 40 mg tablet 40 mg PO QDAY 90 Days Qty: 90 1RF nifedipine 30 mg tablet extended release 24hr 30 mg PO QDAY 90 Days Qty: 90 1RF Discontinued hydralazine 25 mg tablet 25 mg PO BID 90 Days Qty: 180 1RF Follow ups/Referrals Follow ups/Referrals: Kirk Wilson MD [Primary Care Provider] - 08/27/24 3:45 pm Instructions Instructions: Hypoxia, Chronic Obstructive Pulmonary Disease Exacerbation, Respiratory Syncytial Virus Infection, Adult, Community-Acquired Pneumonia, Adult, Enve-nh-Wbun Stand Alone Forms: Find Help Web Site, Post Hospital Follow Up Care
--- NOTE | 2024-08-21 10:07 | PCM.PROG ---
Progress Note Progress Note for Day of Date of Exam: 08/20/24 Subjective Subjective: Patient seen at bedside, no acute events overnight. He is currently being treated for RSV and bacterial pneumonia. He is feeling better today. He is using 2L NC. He has been afebrile. He remains on IV antibiotics and steroids. His BP has been elevated, med changes were done over the weekend. Patient reports his BP is always elevated and he does see cardiology. Labs/imaging reviewed: -WBC 7.6 Hgb 12 BUN/Cr 47/1.53 -CXR: improved -RSV + AIT: strep and H. Influenza Plan: Wean O2 as tolerated. walk test for home O2 eval. Continue current treatment with IV antibiotics and nebs. Stop solumedrol. Monitor BP closely. Continue current regimen, hydralazine was increased yesterday and coreg was added. PT/OT as tolerated. Monitor AM labs/imaging. Past Medical Family Social History Allergies: Allergies No Known Drug Allergies Allergy (Unknown, Verified 08/14/24 17:04) Onset Date: 12/01/2018 Review of Systems ROS: No change since H&P Vital Signs and I&O's Vital Signs: Vital Signs Temperature 97.9 F Temperature 98.3 F Pulse Rate [Right Brachial] 56 Pulse Rate [Right Brachial] 60 Pulse Rate 77 Respiratory Rate 21 Respiratory Rate 20 Blood Pressure [Right Arm] 178/90 Blood Pressure [Right Arm] 147/81 O2 Sat by Pulse Oximetry 97 O2 Sat by Pulse Oximetry 100 O2 Sat by Pulse Oximetry 96 Intake and Output: Intake & Output 08/18/24 08/19/24 08/20/24 08/21/24 23:59 23:59 23:59 23:59 Intake Total 1709 / 1709 2824 / 2824 2931 / 2931 560 / 560 Output Total 1700 / 1700 1770 / 1770 1900 / 1900 1000 / 1000 Balance 1054 / 1054 1031 / 1031 -440 / -440 Physical Exam Oriented: Normal, Time, Person and Place Eyes: Normal Ear: Normal Nose: Normal Throat: Normal Respiratory: Generalized and Diminished Cardiovascular: Normal Auscultation: Bowel Sounds: Normal Palpation: Normal Tenderness: Normal Musculoskeletal: Normal Psychiatric: Normal Mood Description: Calm Affect: Normal Speech Pattern: Clear and Appropriate Laboratory and Diagnostics 08/21/24 05:35 08/21/24 05:35 Labs: 08/16/24 16:35 Blood Blood Culture - Preliminary 08/16/24 16:30 Blood Blood Culture - Preliminary Laboratory WBC 9.7 X10^3/uL (3.6-10.0) 08/21/24 05:35 RBC 4.06 X10^6/uL (4.7-6.0) L 08/21/24 05:35 Hgb 12.1 g/dL (13.5-18.0) L 08/21/24 05:35 Hct 36.5 % (42.0-54.0) L 08/21/24 05:35 MCV 90.0 fL (80.0-100.0) 08/21/24 05:35 MCH 29.8 pg (27.0-34.0) 08/21/24 05:35 MCHC 33.1 g/dL (33.0-35.0) 08/21/24 05:35 RDW 14.8 % (11.6-16.5) 08/21/24 05:35 Plt Count 248 X10^3/uL (150.0-450.0) 08/21/24 05:35 Plt Count Comment Adequate (ADEQUATE) 08/21/24 05:35 MPV 8.8 fL (7.4-11.0) 08/21/24 05:35 Neut % (Auto) 77.0 % (42.0-75.0) H 08/21/24 05:35 Lymph % (Auto) 15.1 % (21.0-51.0) L 08/21/24 05:35 [place] % (Auto) 7.5 % (0.0-13.0) 08/21/24 05:35 Eos % (Auto) 0.2 % (0.9-2.9) L 08/21/24 05:35 Baso % (Auto) 0.2 % (0.2-1.0) 08/21/24 05:35 Neut # (Auto) 7.4 x10^3/uL (2.2-4.8) H 08/21/24 05:35 Lymph # (Auto) 1.5 X10^3/uL (1.3-2.9) 08/21/24 05:35 [place] # (Auto) 0.7 x10^3/uL (0.3-0.8) 08/21/24 05:35 Eos # (Auto) 0.0 x10^3/uL (0.0-0.2) 08/21/24 05:35 Baso # (Auto) 0.0 X10^3/uL (0.0-0.1) 08/21/24 05:35 Absolute Nucleated RBC 0.1 /100WBC 08/21/24 05:35 Total Counted 100 08/21/24 05:35 Neutrophils % (Manual) 79 % (39-76) H 08/21/24 05:35 Band Neutrophils % 2 % (0-10) 08/18/24 04:26 Lymphocytes % (Manual) 17 % (13-43) 08/21/24 05:35 Monocytes % (Manual) 3 % (4-9) L 08/21/24 05:35 Eosinophils % (Manual) 1 % (0-6) 08/21/24 05:35 Metamyelocytes % 3 08/18/24 04:26 Myelocytes % 2 08/18/24 04:26 Plt Morphology Comment Normal (NORMAL) 08/21/24 05:35 RBC Morphology Normal (NORMAL) 08/21/24 05:35 Sample Site Rrad 08/16/24 17:05 ABG pH 7.480 (7.35-7.45) H 08/16/24 17:05 ABG pCO2 34.0 mmHg (35.0-45.0) L 08/16/24 17:05 ABG pO2 46.0 mmHg (80.0-100.0) L* 08/16/24 17:05 ABG HCO3 25.3 mmol/L (22-26) 08/16/24 17:05 ABG O2 Saturation 85.0 % (90-100) L 08/16/24 17:05 ABG Base Excess 2.1 mmol/L (-2.0-2.0) H 08/16/24 17:05 Gunnar Test Pos 08/16/24 17:05 A-a Gradient 61.0 mmHg 08/16/24 17:05 FiO2 21.0 08/16/24 17:05 Blood Gas Comments Torsten well ms/cn 08/16/24 17:05 Sodium 139 mmol/L (136-145) 08/21/24 05:35 Corrected Sodium TNP 08/21/24 05:35 Potassium 4.2 mmol/L (3.5-5.1) 08/21/24 05:35 Chloride 105 mmol/L (98-107) 08/21/24 05:35 Carbon Dioxide 27.4 mmol/L (21-32) 08/21/24 05:35 BUN 45 mg/dL (7-18) H 08/21/24 05:35 Creatinine 1.55 mg/dL (0.70-1.30) H 08/21/24 05:35 Est GFR (MDRD) Af Amer 58 (>60) L 08/21/24 05:35 Est GFR (MDRD) Non-Af 48 (>60) L 08/21/24 05:35 Glucose 90 mg/dL (65-99) 08/21/24 05:35 Lactic Acid 2.0 mmol/L (0.4-2.0) 08/16/24 18:50 Calcium 9.0 mg/dL (8.5-10.1) 08/21/24 05:35 Corrected Calcium 10.7 mg/dL (8.5-10.1) H 08/21/24 05:35 Magnesium 2.1 mg/dL (2.0-2.9) 08/21/24 05:35 Total Bilirubin 0.30 mg/dL (0.2-1.0) 08/21/24 05:35 AST 19 Units/L (15-37) 08/21/24 05:35 ALT 15 Units/L (12-78) 08/21/24 05:35 Alkaline Phosphatase 67 Units/L (46-116) 08/21/24 05:35 Total Protein 5.8 g/dL (6.4-8.2) L 08/21/24 05:35 Albumin 1.9 g/dL (3.4-5.0) L 08/21/24 05:35 Globulin 3.9 g/dL (2.5-4.5) 08/21/24 05:35 Albumin/Globulin Ratio 0.5 Ratio (1.1-2.1) L 08/21/24 05:35 Resp Viral Panel (PCR) See scanned report 08/16/24 20:57 Plan (1) Pneumonia: Status: Acute Qualifiers: Laterality: bilateral Lung location: unspecified part of lung Pneumonia type: due to Haemophilus influenzae Qualified Code(s): J14 - Pneumonia due to Hemophilus influenzae (2) Acute respiratory distress: Status: Acute (3) Hypoxia: Status: Acute Plan: Supplemental O2 therapy. (4) RSV (respiratory syncytial virus pneumonia): Status: Acute (5) Type 2 diabetes mellitus: Status: Chronic Qualifiers: Diabetes mellitus complication status: with other specified complication Diabetes mellitus correction insulin use: without superintendent container terminal use Qualified Code(s): E11.69 - Type 2 diabetes mellitus with other specified complication (6) GERD (gastroesophageal reflux disease): Status: Chronic Qualifiers: Esophagitis presence: without esophagitis Qualified Code(s): K21.9 - Gastro-esophageal reflux disease without esophagitis (7) Hypertension with goal blood pressure less than 130/80: Status: Chronic (8) Chronic kidney disease, stage 3 unspecified: Status: Chronic Qualifiers: Chronic kidney disease stage 3 subtype: unspecified whether 3a or 3b Qualified Code(s): N18.30 - Chronic kidney disease, stage 3 unspecified
== END 2024-08-21 11:20 | disposition home or self-care (01) | DRG 195 ==
LOC: ER 16:15 → MED/SURG 18:47
PROVIDERS: ADMIT Family Medicine; ATTEND Family Medicine
DX: R06.03 Acute respiratory distress; J12.1 Respiratory syncytial virus pneumonia; K21.9 Gastro-esophageal reflux disease without esophagitis; Z29.89 Encounter for other specified prophylactic measures; B95.3 Streptococcus pneumoniae as the cause of diseases classified elsewhere; I12.9 Hypertensive chronic kidney disease with stage 1 through stage 4 chronic kidney disease, or unspecified chronic kidney disease; R06.02 Shortness of breath; E78.5 Hyperlipidemia, unspecified; J14 Pneumonia due to Hemophilus influenzae; E83.42 Hypomagnesemia; N18.31 Chronic kidney disease, stage 3a; R09.02 Hypoxemia; E11.65 Type 2 diabetes mellitus with hyperglycemia